=== PATIENT | female | born 1965 | race Caucasian/White ===

== ENCOUNTER 2023-06-11 16:17 | Emergency (ER) | payer OTHER, SELFPAY ==
--- NOTE | ~2023-06-11 | XR_ITS ---
EXAMINATION: XR chest 2V DATE: 06/11/2023 17:52 INDICATION: COPD. Cough and congestion. TECHNIQUE: frontal and lateral views of the chest were obtained. COMPARISON: None FINDINGS: The lungs are clear with no focal airspace opacities, pulmonary edema, pleural effusion or pneumothor ax. The cardiomediastinal silhouette is normal. Mild midthoracic spondylosis. IMPRESSION: 1. No acute cardiopulmonary disease. Reviewed, dictated and finalized at location A. [employer]
[2023-06-11 16:28] VITALS: BP 129/62; PULSE 100; RESP 20; TEMP 36.6; O2SAT 96
--- NOTE | 2023-06-11 17:07 | ED.GENADULT ---
HPI - General Adult General Chief complaint: Upper Respiratory Infection Stated complaint: throat/fever Source: patient Mode of arrival: ambulatory Limitations: no limitations History of Present Illness HPI narrative: Patient presents for evaluation of sick symptoms. Symptom onset 4 days ago. She reports productive cough of rondon green sputum, sinus congestion, green nasal drainage and sore throat. She states she had a fever today at home with T-max 103.8? F. no recent sick contacts to her knowledge. She has an underlying history of COPD and continued to smoke approximately 5 cigarettes per day. She also has a history of diabetes and is currently on glipizide and metformin. She states that her blood sugars were running in the 400-500s yesterday. She took ibuprofen for her symptoms which provided her some relief. Related Data Home Medications Medication Instructions Recorded Confirmed atorvastatin 40 mg tablet mg 06/11/23 atorvastatin 80 mg tablet mg 06/11/23 citalopram 10 mg tablet mg 06/11/23 fluticasone 250 mcg-salmeterol 50 inhalation 06/11/23 mcg/dose blistr powdr for inhalation glipizide 5 mg tablet, extended mg PO 06/11/23 release 24 hr lamotrigine 200 mg tablet mg 06/11/23 metformin 1,000 mg tablet mg 06/11/23 montelukast 10 mg tablet mg 06/11/23 montelukast 10 mg tablet mg 06/11/23 omeprazole 20 mg capsule,delayed mg 06/11/23 release pregabalin 75 mg capsule mg 06/11/23 quetiapine 25 mg tablet mg 06/11/23 quetiapine 400 mg tablet mg 06/11/23 Allergies Allergy/AdvReac Type Severity Reaction Status Date / Time clarithromycin Allergy Unknown Abdominal Verified 06/11/23 16:52 Pain Penicillins Allergy Unknown Hives Verified 06/11/23 16:52 Review of Systems Review of Systems: CONSTITUTIONAL: Reports fever. Denies chills. EYES: Denies visual changes, redness, or discharge. ENT: Reports sinus congestion, green nasal discharge, sore throat. CARDIOVASCULAR: Denies chest pain, palpitations, or edema. RESPIRATORY: Reports productive cough and shortness of breath. GASTROINTESTINAL: Denies abdominal pain, nausea, vomiting, or diarrhea. GENITOURINARY: Denies dysuria or hematuria. SKIN: Denies rash or itching. MUSCULOSKELETAL: Denies back pain, joint pain, or myalgia. NEUROLOGIC: Denies headache, numbness, dizziness, or weakness. PSYCHIATRIC: Denies anxiety or depression. [facility] Past Medical History Medical History (Updated 06/11/23 @ 18:25 by GILLIAN Carreno, ) COPD (chronic obstructive pulmonary disease) Diabetes Surgical History Surgical History No pertinent past surgical history Family History Family History Sibling Hypertension Family history of elevated blood lipids Family history of emphysema Family history of type 2 diabetes mellitus Family history of congestive heart failure Family history of heart disease in male family member before age 55 Father Family history of alcoholism Mother Family history of lung cancer Family history of type 2 diabetes mellitus Social History Social History Smoking packs per day: 0.25 Smoking cigarettes per day: 5.0 Smoking status: Current every day smoker Alcohol intake: never Additional living arrangements comments: Lives with boyfriend Gender identity (if verbalized by the patient): Female Sexual Orientation (if Verbalized by the Patient): Straight or Heterosexual Spiritual care concerns: No Exam Narrative: GENERAL: Smells strongly of cigarette smoke. Well-appearing, well-nourished, and in no acute distress. HEAD: Normocephalic, atraumatic. EYES: PERRLA and EOMI. ENT: Nares clear, no rhinorrhea or epistaxis. Mucous membranes moist. Oropharynx without tonsillar hypertrophy exudate or other lesions. Bilateral TM
[2023-06-11 17:26] LABS: Glucose Point of Care 264 mg/dl (65-105)
== END 2023-06-11 18:34 | disposition home or self-care (01) ==
PROVIDERS: Emergency Provider Nurse Practitioner
DX: J18.9 Pneumonia, unspecified organism (principal); J44.9 Chronic obstructive pulmonary disease, unspecified; Z20.822 Contact with and (suspected) exposure to COVID-19; F17.210 Nicotine dependence, cigarettes, uncomplicated; E11.9 Type 2 diabetes mellitus without complications; Z79.84 Long term (current) use of oral hypoglycemic drugs
CPT/HCPCS: 71046; 82948; 87081; 87426; 87804; 87880; 99203; C9803; G0463

== ENCOUNTER 2025-03-27 13:41 | Outpatient (CLI) | payer MEDICARE, MEDICAID, SELFPAY ==
--- NOTE | ~2025-03-27 | CT_ITS ---
CT Scan of the Chest without Contrast: Clinical Indication: Lung nodule Technique: Contiguous sections were acquired throughout the chest without intravenous contrast. Dose reduction technique was used on this scan by utilizing automated exposure control and iterative reconstruction technique. The dose-length product (DLP) was 124.45 mGy-cm. Findings: There is no evidence of any significant mediastinal, hilar or axillary lymphadenopathy. Coronary artery calcifications are present. No pleural effusions. There is minimal pericardial fluid. The lungs are clear. No pulmonary nodules or infiltrates are noted. Images through the upper abdomen reveal 2.6 cm left adrenal nodule, most likely adenoma. Impression: Clear lungs. 2.6 cm adrenal nodule is most likely adenoma. Follow-up nonemergent MR recommended to confirm. Reviewed, dictated and finalized at location . Impression: Clear lungs. 2.6 cm adrenal nodule is most likely adenoma. Follow-up nonemergent MR recommen ded to confirm.
--- NOTE | ~2025-03-27 | MM_ITS ---
EXAMINATION: MM screening joselin BI w mike HISTORY: Screening mammogram, family history of breast cancer in her sister. TECHNIQUE: Craniocaudal and mediolateral oblique 3-D tomosynthesis images were obtained and synthetic 2-D images were generated. CAD analysis was submitted and interpreted. COMPARISON: No prior mammogram is available for comparison at this institution. BREAST PARENCHYMAL COMPOSITION:Not Dense. There are scattered areas of fibroglandular density. FINDINGS: No suspicious mass, calcification, or architectural distortion are identified in either breast to suggest malignancy. There has been no suspicious interval change. IMPRESSION: No mammographic evidence of malignancy. Recommend routine screening mammography in one year. BI-RADS Category 1: Negative Reviewed, dictated and finalized at location .
--- OUTSIDE RECORDS SUMMARY | 2025-03-27 13:55 | XMS_ITS | Clinical Summary ---
Author Organization [facility] Address [address] [place] [address] Care Team Providers Care Cage Manager Name Role Phone Brisa Maldonado MD Unavailable Chayito Hernadez MD Primary Care Provider [phone] Allergies Active Allergy Reactions Criticality Noted Date Comments Clarithromycin Other (see comment) High 05/10/2018 Stomach cramps Codeine Unknown Penicillin V Hives High 05/10/2018 Medications vitamin D2, ergocalciferol, [address]8543 UNITS capsule Take 1 capsule (50,000 Units total) by mouth once a week. 0 8 Active VENTOLIN HFA 108 (90 Base) MCG/ACT inhaler Use as directed in the mouth or throat daily as needed. 0 8 Active QUEtiapine (SEROQUEL) 25 MG tabletIndicatio ns:25 mg morning and noon Take 1 tablet (25 mg total) by mouth every 6 (six) hours as needed. Indications: 25 mg morning and noon 8pm 1 8 Active nitroglycerin 0.[address] 1 tablet (0.4 mg total) under the tongue every 5 (five) minutes as needed for Chest Pain. 30 tablet 1 8 Active Additional Information Patient not taking.Reported on 12/05/2024 metFORMIN ER 500 MG 24 hr tablet Take 2 tablets (1,000 mg total) by mouth 2 (two) times a day. 0 9 Active atorvastatin (LIPITOR) 80 MG tablet Take 1 tablet (80 mg total) by mouth nightly at bedtime. 0 9 Active omeprazole 20 MG capsule Take 2 capsules (40 mg total) by mouth 2 (two) times a day. Active clobetasol 0.05 % cream 2 (two) times daily as needed. 0 Active ipratropium 0.02 % nebulizer solution INHALE 1 VIAL VIA NEBULIZER Q 6 TO 8 H PRN 9 Active QUEtiapine (SEROQUEL) 200 MG tablet Take 1 tablet (200 mg total) by mouth nightly at bedtime. 0 Active metoprolol succinate ER 50 MG 24 hr tablet Take 1 tablet (50 mg total) by mouth daily. 90 tablet 3 0 Active Additional Information Patient not taking.Reported on 12/05/2024 lamoTRIgine (LAMICTAL) 200 MG tablet Take 1 tablet (200 mg total) by mouth 2 (two) times daily. Active meloxicam (MOBIC) 7.5 MG tablet Take 1 tablet (7.5 mg total) by mouth daily. Active aspirin 81 MG chewable tablet Chew 1 tablet (81 mg total) by mouth daily. Active varenicline (CHANTIX) 1 MG tablet Take 1 tablet (1 mg total) by mouth 2 (two) times daily. Active citalopram (CELEXA) 20 MG tablet Take 1 tablet (20 mg total) by mouth daily. Active montelukast (SINGULAIR) 10 MG tablet Take 1 tablet (10 mg total) by mouth nightly at bedtime. Active tirzepatide (MOUNJARO) 10 MG/0.5ML injectionIndica tions:Diabetes Mellitus Inject 10 mg into the skin every 7 days. Indications: Diabetes Active ziprasidone (GEODON) 40 MG capsule Take 1 capsule (40 mg total) by mouth daily. 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 05/27/2018 Hypertension, essential 05/27/2018 Mild concentric left ventricular hypertrophy (LV H) 05/27/2018 Mixed hypercholesterolemia and hypertriglyceride phani 05/27/2018 NSTEMI (non-ST elevated myoc ardial infarction) ([facility]) 05/10/2018 Pulmonary emphysema ([facility]) 05/10/2018 Immunizations Immunization Administration Dates Next Due Influenza Adult (Generic) 07/21/2019 Family History Medical History Relation Comments Breast Cancer Mother Breast Cancer Sister 1 Breast Cancer Sister 2 Relation Status Comments Mother Sister 1 Sister 2 Alive Social History Tobacco Use Types Packs/Day Years Used Date Smoking Tobacco: Every Day Cigarettes Smokeless Tobacco: Never Tobacco Cessation:Ready to Q uit: Not Asked; Counseling Given: Not Answered Alcohol Use Standard Drinks/Week Comments No 0 (1 standard drink = 0.6 oz pur e alcohol) AUDIT-C Answer Date Recorded Frequency of Alcohol Consumption Never 05/11/2018 Average Number of Drinks Not on file 018 Frequency of Binge Drinking Not on file 12/2017 Comments No Sex and Gender Information Value Date Recorded Sex Assigned at Not on file Legal Sex Female 7:59 PM CDT Gender Identity Not on file Sexual Orientation Not on file Last Filed Vital Signs Vital Sign Reading Time Taken Comments Blood Pressure 120/75 12/05/2024 2:29 PM CDT Pulse 70 12/05/2024 2:29 PM CDT Temperature 36.6 C (97.9 F) 11/30/2022 4:28 PM CDT Respiratory Rate 16 12/05/2024 2:29 PM CDT Oxygen Saturation 98% 12/05/2024 2:29 PM CDT Inhaled Oxygen Concentration - - Weight 81.7 kg (180 lb 3.2 oz) 12/05/2024 2:29 P M CDT Height 162.6 cm (5' 4) 12/05/2024 2:29 PM CDT Body Mass Index 30.93 12/05/2024 2:29 PM CDT Plan of Treatment Upcoming Encounters Date Type Department Care Team (Late st Contact Info) Description 08/14/2025 2:45 PM TAFE TEACHER [facility] [address] [place] [address] Brisa Maldonado MD [address] [place] [address] Health Maintenance Due Date Last Done Comments ASCVD Statin 1965 Colorectal Cancer Screening Colonoscopy (10 Years) 1965 Kidney Health Evaluation 1965 Annual Physical 1968 Diabetes: Retinopathy Eye Exam 1983 Hepatitis C 1983 Zoster Vaccines (1 of 2) 2015 Hemoglobin A1C 11/09/2018 05/11/2018 ASCVD LDL 05/11/2019 05/11/2018 Lipid Panel 05/11/2019 05/11/2018 Mammogram Screening 08/16/2025 08/16/2023, 09/15/2022, 07/30/2021, Additional history exists Cervical Cancer Screening Pap Smear (Age 30 to 64) Every 3 Years 10/17/2026 10/18/2023 Cervical Cancer Screening Pap with HPV Testing (Age 30 to 64) Every 5 Years 10/17/2028 10/18/2023 Cervical Cancer Screening with HPV 10/17/2028 DTaP, Tdap and Td Vaccines (3 - Td or Tdap) 05/11/2033 05/11/2023, 07/27/2022 COVID-19 Vaccine Completed 04/15/2024, , 07/06/2022, Additional history exists Pneumococcal Vaccine: 50+ Years Completed 04/15/2024, 06/14/2021 Meningococcal B Vaccine Aged Out No l onger eligible based on patient's age to complete this topic Meningococcal Vaccine Aged Out No luciano darren eligible based on patient's age to complete this topic RSV Immunizations Under 20 Months Aged Out No longer eligible based on patient's age to complete this topic Medical Devices Implanted Type Area Garbage Collector Device Identifier Shelf Expiration Date Model / Serial / Lot Cv Xience Matilda Jose G [id number] /[id number] Implanted:Qty: 1 on 05/10/2018 by Isaiah Marlow do, MD Stent Coronary [employer] 03/01/2019 [id number] Procedures Procedure Name Priority Date/Time Associated Diagnosis Comments HUMAN PAPILLOMAVIRUS, HIGH-RISK TYPES Routine 10/18/2023 8:00 AM CDT CYTOPATH CERV/VAG THIN LAYER Routine 10/18/2023 12:00 AM CDT MG SCREENING W ILYA VISHNU DIGI Routine 08/16/2023 8:16 AM TAFE TEACHER Visit for screening mammogram LIPID PANEL Routine 05/11/2018 4:05 AM CDT HEMOGLOBIN, GLYCOSYLATED Routine 05/11/2018 4:05 AM CDT from Last 3 Months or Most Recently Relevant to Health Maintenance Results * HUMAN PAPILLOMAVIRUS, HIGH-RISK TYPES (10/18/2023 8:00 AM CDT) SPECIMEN CERVIX 10/20/2023 9:34 AM CDT [facility] HPV DNA HIGH RISK NEGATIVE NEGATIVE 10/21/2023 12:39 AM CDT [facility] Comment:SEE CYTOLOGY REPORT 10/18/2023 8:00 AM CDT us Margarette Wylie MD PATHOLOGY/CYTOLOGY ORDERABLES Final Result [facility] [address] [place] [id number], * Cytopath Cerv/Vag Thin Layer (10/18/2023 12:00 AM CDT) THIN PREP PAP [facility] [address] [place] [address] Department of Pathology Pathology Report CERVICAL/VAGINAL PAP SMEAR REPORT Name: NASIM PADRON Age: 11 1965 (Age: 58) Location: [facility] Sex: F Collected Date: 10/18/2023 [facility] #: [id number] Date Received: 10/19/2023 Date Reported: 10/26/2023 Provider: MARGARETTE WYLIE MD INTERPRETATION CERVICAL/ENDOCERVI MEGAN: SATISFACTORY FOR EVALUATION. ENDOCERVICAL/TRANS FORMATION ZONE COMPONENT PRESENT. NEGATIVE FOR INTRAEPITHELIAL LESION OR MALIGNANCY. NEGATIVE FOR HIGH RISK HPV. The FDA approved Aptima HPV assay is an in vitro nucleic acid amplification test for the qualitative detection of E6/E7 viral messenger RNA (mRNA) from 14 high-risk types of human papillomavirus (HPV) in cervical specimens. The high-risk HPV types detected by the assay include: 16,18,31,33,35,39, 45,51,52,56,58,59, 66, and 68. Electronically Signed Out [facility] HOA Yuan (ASCP) CLINICAL HISTORY Z12.4 CERVICAL CANCER SCREENING SCREENING PAP ThinPrep Pap Test with screening HR HPV testing requested, with reflex HPV 16/18 genotyping on negative cytology, positive HR HPV Date of Last Menstrual Period: UNKNOWN Menstrual Status: Post-Menopausal SPECIMEN SUBMITTED CERVICAL/ENDOCERVI MEGAN Specimen Received:1 Thin Prep Vial, Image Assisted Pap (SMD) Please note: The Pap smear is not a diagnostic test. It is a screening test. Negative results on combined screening (Pap test and HPV-DNA) have a high negative predictive value (99.1-100 percent) for cervical cancer. The pap test is not effective in detecting cervical adenocarcinoma. [facility] 10/18/2023 10/19/2023 10: 21 AM CDT Comment:CERVICAL/ENDOCERVICA L us Margarette Wylie MD PATHOLOGY/CYTOLOGY ORDERABLES Final Result [facility] [address] [place] [address], * MG SCREENING W ILYA GUERRAI (08/16/2023 8:16 AM TAFE TEACHER) Anatomical Region Laterality Modality Breast Bilateral Mammography 08/16/2023 12:5 8 PM TAFE TEACHER Narrative 08/16/2023 1:02 PM TAFE TEACHER EXAMINATION: BILATERAL SCREENING MAMMOGRAPHY Exam Date: 08/16/2023 7:59 AM CLINICAL INDICATION: 58 years of age female routine screening. Patient had a mother and 2 sisters diagnosed with breast cancer. COMPARISON: Screening mammogram(s) from 05/22/2015 and 01/23/2019. TECHNIQUE: Digital CC & MLO views. Tomosynthesis imaging acquisition Study read with the assistance of a computer-aided detection system. TISSUE DENSITY: There are scattered areas of fibroglandular density. FINDINGS: Benign calcifications and left axillary lymph node. No suspicious grouping of microcalcifications, architectural distortion, or new dominant suspicious nodule 3 dimensionally demonstrated in either breast. IMPRESSION: No interval features to suggest malignancy. In the absence of clinical symptoms, return for annual screening mammogram due in 1 year. RECOMMENDATION: Routine Screening, Bilateral in 1 year ASSESSMENT: ACR BI-RADS 2 - BENIGN FINDING(S) Ordered By: CHAYITO HERNADEZ Interpreted By: Don Chen MD, 08/16/2023 12:58 PM us Chayito Hernadez MD MAMMO Final Resu lt * (ABNORMAL) HEMOGLOBIN, GLYCATED (05/11/2018 4:05 AM CDT) HGB A1C 6.5(H) 4.2 - 6.3 % 05/11/2018 4:52 AM CDT [facility] ESTIMATED AVG GLUCOSE 140(H) 74 - 106 MG/DL 05/11/2018 4:52 AM CDT [facility] 05/11/2018 4:05 AM CDT us Conner Pickett MD LABORATORY Final Result [facility] [address] [place] [address], [id number] * (ABNORMAL) LIPID PANEL (05/11/2018 4:05 AM CDT) CHOLESTEROL 186 MG/DL 05/11/2018 4:44 AM CDT [facility] Comment:DESIRABLE: <200 TRIGLYCERIDES 224 MG/DL 05/11/2018 4:44 AM CDT [facility] Comment:200-499 HIGH HDL 27(L) >49 MG/DL 05/11/2018 4:44 AM CDT [facility] LDL (CALCULATED) 114 MG/DL 05/11/20 18 4:44 AM CDT [facility] Comment:100-129 NEAR OR ABOV E OPTIMAL VLDL CALCULATION 45 MG/DL 05/11/20 18 4:44 AM CDT [facility] Comment:REFERENCE RANGE NOT ESTABLISHED CHOL/HDL RATIO 6.9 05/11/2018 4:44 AM CDT [facility] Comment:REFERENCE RANGE NOT ESTABLISHED LDL/HDL 4.2 05/11/2018 4:44 AM CDT [facility] Comment:REFERENCE RANGE NOT ESTABLISHED NON HDL CHOLESTEROL 159 MG/DL 05/11/2018 4:44 AM CDT [facility] Comment:REFERENCE RANGE NOT ESTABLISHED 05/11/2018 4:05 AM CDT Isaiah Charles MD LABORATORY Sonia l Result [facility] [address] [place] [address], [id number] from Last 3 Months or Most Recently Relevant to Health Maintenance Insurance MEDICAID MEDICARE [facility] Advance Directives * Full Code (Latest Code Status on File) Date Activated Date Inactivated Comments 05/10/2018 11:55 PM 05/12/2018 1:25 PM * Full Code Date Activated Date Inactivated Comments 05/10/2018 11:22 PM 05/10/2018 11:54 PM * Full Code Date Activated Date Inactivated Comments 05/10/2018 11:22 PM 05/10/2018 11:22 PM Care Teams Cage Manager Relationship Specialty Start Date End Date Chayito Hernadez MD [address] [place] [phone] PCP - General FAMILY PRACTICE 11/21/24 Brisa Maldonado MD [address] [place] [address] Consulting Physician CARDIOVASCULAR DISEASE 11/21/24
--- OUTSIDE RECORDS SUMMARY | 2025-03-27 13:55 | XMS_ITS | Encounter Summary ---
Author Organization [facility] Address [address] [place] [address] Phone Care Team Providers Care Senior Landscape Architect Name Role Phone Raeann Forrest APRN, CNP Primary Care Provider Mirella Cotter APRN, CNP Unavailable Reason for Visit * Reason Comments Medication Refill Encounter Details Date Type Department Care Team (Late st Contact Info) Description 12/08/2022 Refill [facility] - Pulmonology & Sleep Medicine [facility] [address] [place] [address] Mirella Cotter APRN, CNP [address] [address] Medication Refill Social History Tobacco Use Types Packs/Day Years Used Date Smoking Tobacco: Some Days Cigarettes Smokeless Tobacco: Never Alcohol Use Standard Drinks/Week Comments No 0 (1 standard drink = 0.6 oz pur e alcohol) Sexually Active Control Partners Comments Not Currently Comments No Sex and Gender Information Value Date Recorded Sex Assigned at Not on file Legal Sex Female 7:41 PM CDT Gender Identity Not on file Sexual Orientation Not on file documented as of this encounter Miscellaneous Notes * Telephone Encounter - Raina Ghotra, RN - 12/08/2022 10:46 AM CDT Medication failed the protocol, provider to review and approve the medication order if appropriate. Requested Prescriptions Pending Prescriptions Disp Refills varenicline (CHANTIX) 1 MG Tablet [Pharmacy Med Name: VARENICLINE 1MG] 60 Tablet 1 Sig: TAKE 1 TABLET BY MOUTH 2 TIMES DAILY. Not Delegated - Smoking Deterrents Protocol Failed - 12/08/2022 10:39 AM Failed - This refill cannot be delegated Passed - Visit with relevant provider in past 6 months or upcoming 90 days Recent Visits Date Type Provider Dept 08/04/22 Office Visit Mirella Cotter APRN, CNP [facility] Showing recent visits within past 182 days and meeting all other requirements Future Appointments Date Type Provider Dept 02/02/23 Appointment Mirella Cotter APRN, CNP [facility] Showing future appointments within next 90 days and meeting all other requirements documented in this encounter Plan of Treatment Upcoming Encounters Date Type Department Care Team (Late st Contact Info) Description 05/30/2025 10:00 AM CDT Office Visit [facility] - Pulmonology & Sleep Medicine - [place] [address] [place] [address] Mirella Cotter APRN, CNP [address] [address] documented as of this encounter Visit Diagnoses Diagnosis Personal history of tobacco use Personal history of tobacco use, presenting hazards to health documented in this encounter Care Teams Senior Landscape Architect Relationship Specialty Start Date End Date Raeann Forrest APRN, CNP [address] [place] [address] PCP - General Advanced Practice Nurse 07/28/21 Mirella Cotter APRN, CNP [address] [address] Nurse Practitioner Advanced Practice Nurse 10/28/2112/08/24 documented as of this encounter
--- OUTSIDE RECORDS SUMMARY | 2025-03-27 13:55 | XMS_ITS | Clinical Summary ---
Author Organization [facility] Address [address] [place] [address] Phone Care Team Providers Care Patrol Mother Name Role Phone Lon Raeann Vidal APRN, SOLE TIER Primary Care Provider Allergies Active Allergy Reactions Criticality Noted Date Comments Clarithromycin Other (see Comments) 10/07/2016 Stomach cramping Gabapentin Swelling High 07/29/2021 Hydroxyzine Hives 07/29/2021 Penicillins Hives 10/07/2016 Medications citalopram (CELEXA) 20 MG Tablet Take 20 mg by mouth daily. Active ibuprofen (MOTRIN) 800 MG Tablet Take 800 mg by mouth every 8 hours as needed. Active QUEtiapine Fumarate 400 MG Tablet Take 400 mg by mouth 2 times daily. Active meloxicam (MOBIC) 7.5 MG Tablet Take 7.5 mg by mouth daily. Active atorvastatin (LIPITOR) 40 MG Tablet Take 80 mg by mouth. 9 Active lamoTRIgine (LaMICtal) 100 MG Tablet Take 100 mg by mouth. Active ipratropium (ATROVENT) 0.02 % Solution 2.5 mL. 9 Active omeprazole (PriLOSEC) 20 MG CAPSULE DELAYED RELEASE omeprazole 20 mg capsule,delayed release Take 1 capsule every day by oral route. Active MetFORMIN HCl 1000 MG (MOD) TABLET SR 24 HR Take by mouth 2 times daily. This RX is for Metformin SR. Active Ventolin HFA 108 (90 Base) MCG/ACT Aerosol SolutionIndicat ions:Other emphysema (HCC) take 2 Puffs by inhalation every 4 hours as needed for Cough. 18 g 5 2 Active azelastine (ASTELIN) 0.1 % SolutionIndicat ions:PND (post-nasal drip) 2 Sprays by Nasal route 2 times daily. Use in each nostril as directed 30 mL 3 4 Active Fluticasone-Ume clidin-Vilant (Trelegy Ellipta) 100-62.5-25 MCG/ACT AEROSOL POWDER, BREATH ACTIVATEDIndica tions:Centrilob ular emphysema (HCC) take 1 Puff by inhalation daily. 14 Each 4 Active Additional Information Patient not taking.Reported on 12/03/2024 Tirzepatide (Mounjaro) 10 MG/0.5ML Solution Auto-injector 10 mg by Subcutaneous route once a week. 0.5 mL 5 Active montelukast (SINGULAIR) 10 MG TabletIndicatio ns:Obstructive sleep apnea Take 1 Tablet by mouth every evening. 90 Tablet 3 5 Active Active Problems Problem Noted Date Diagnosed Date PND (post-nasal drip) 09/26/2023 Acute non-recurrent frontal sinusitis 02/02/2023 Personal history of tobacco use 12/28/2021 Other emphysema 12/28/2021 Snoring 07/29/2021 Obstructive sleep apnea 07/29/2021 Morbid obesity 07/29/2021 Resolved Problems Problem Noted Date Diagnosed Date Resolved Date Excessive daytime sleepiness 07/29/2021 12/28/2021 Immunizations Immunization Administration Dates Next Due Influenza, Injectable, Quadrivalent 06/14/2021 Pneumococcal Vaccine Adult - 23 Valent Social History Tobacco Use Types Packs/Day Years Used Date Smoking Tobacco: Former Cigarettes Smokeless Tobacco: Never Alcohol Use Standard [...] Sign Reading Time Taken Comments Blood Pressure 98/60 12/03/2024 8:01 AM CDT Pulse 83 12/03/2024 8:01 AM CDT Temperature 36.7 C (98 F) 12/03/2024 8:01 AM CDT Respiratory Rate 20 12/03/2024 8:01 AM CDT Oxygen Saturation 98% 12/03/2024 8:01 AM CDT Inhaled Oxygen Concentration - - Weight 80.6 kg (177 lb 11.2 oz) 12/03/2024 8:01 AM CDT Height 162.6 cm (5' 4) 12/03/2024 8:01 AM CDT Body Mass Index 30.5 12/03/2024 8:01 AM CDT Plan of Treatment Upcoming Encounters Date Type Department Care Team (Late st Contact Info) Description 05/30/2025 10:00 AM CDT Office Visit [facility] - Pulmonology & Sleep Medicine - [place] [address] [place] [address] Mirella Cotter APRN, SOLE TIER #2 [facility] [address] [place] [address] Health Maintenance Due Date Last Done Comments Hepatitis C Virus (HCV) Screening 1965 Hepatitis B Immunization (1 of 3 - 19+ 3-dose series) 1984 HPV/Cotest 1995 Cologuard 2010 Colonoscopy 2010 Colorectal Cancer Screening 2010 Immunochemical Fecal Occult Blood 2010 Zoster Immunization (1 of 2) 2015 Mammogram 08/16/2024 08/16/2023, 08/07, 09/15/2022, Additional history exists Influenza Immunization (#1) 04/07/202508/2023, 04/15/2024, 06/27/2023, Additional history exists Cervical Cancer Screening (CCS) 10/17/2026 Pap Smear 10/17/2026 10/18/2023 Respiratory Syncytial Virus (RSV) Immunization (Adult) (1 - 1-dose 75+ series) 2040 DTaP/Tdap/Td Immunization Discontinued 05/11/2023, TdaP Immunization Completed 05/11/2023, 07/27/2022 Pneumococcal Immunization (50+ years) Completed 04/15/2024, 06/14/2021 Pneumococcal Immunization Combined Discontinued 04/15/2024, 06/14/2021 SARS-COV-2 Immunization Completed 04/15/20 24, 07/01/2023, 07/06/2022, Additional history exists Human Papillomavirus (HPV) Immunization Aged Out No longer eligible based on patient's age to complete this topic Meningococcal Immunization (ACWY) Aged Out No longer eligible based on patient's age to complete this topic Rotavirus Immunization Aged Out No lo nger eligible based on patient's age to complete this topic Insurance MEDICAID [place] MEDICARE Care Teams Patrol Mother Relationship Specialty Start Date End Date Raeann Forrest APRN, SOLE TIER [address] [place] [address] PCP - General Advanced Practice Nurse 07/28/21
--- OUTSIDE RECORDS SUMMARY | 2025-03-27 13:55 | XMS_ITS | Encounter Summary ---
Author Organization [facility] Address [address] [place] [address] Phone Care Team Providers Care Surveying Teacher Name Role Phone Raeann Forrest APRN, CNP Primary Care Provider Mirella Cotter APRN, CNP Unavailable Reason for Visit * Reason Comments Medication Refill Encounter Details Date Type Department Care Team (Late st Contact Info) Description 10/07/2022 Refill [facility] - Pulmonology & Sleep Medicine [facility] [address] [place] [address] Mirella Cotter APRN, CNP [address] [address] Medication Refill Social History Tobacco Use Types [...] encounter Miscellaneous Notes * Telephone Encounter - Kemi Felix RN - 10/10/2022 8:39 AM WEB SERVICES DEVELOPER Medication failed the protocol, provider to review and approve the medication order if appropriate. Requested Prescriptions Pending Prescriptions Disp Refills APO-Varenicline 1 MG Tablet [Pharmacy Med Name: VARENICLINE 1MG TABLET] 60 Tablet 1 Sig: TAKE 1 TABLET BY MOUTH 2 TIMES DAILY. Not Delegated - Smoking Deterrents Protocol Failed - 10/07/2022 4:09 PM Failed - This refill cannot be delegated Passed - Visit with relevant provider in past 6 months or upcoming 90 days Recent Visits Date Type Provider Dept 08/04/22 Office Visit Mirella Cotter APRN, CNP [facility] Showing recent visits within past 182 days and meeting all other requirements Future Appointments No visits were found meeting these conditions. Showing future appointments within next 90 days and meeting all other requirements SERVICES DEVELOPER documented in this encounter Plan of Treatment Upcoming Encounters Date Type Department Care Team ([facility] st Contact Info) Description 05/30/2025 10:00 AM CDT Office Visit [facility] - Pulmonology & Sleep Medicine [facility] [address] [place] [address] Mirella Cotter APRN, MELVA [address] [address] documented as of this encounter Visit Diagnoses Diagnosis Personal history of tobacco use Personal history of tobacco use, presenting hazards to health documented in this encounter Care Teams Surveying Teacher Relationship Specialty Start Date End Date Raeann Forrest APRN, CNP [address] [place] [address] PCP - General Advanced Practice Nurse 07/28/21 Mirella Cotter APRN, CNP [address] [address] Nurse Practitioner Advanced Practice Nurse 10/28/2112/08/24 documented as of this encounter
--- OUTSIDE RECORDS SUMMARY | 2025-03-27 13:55 | XMS_ITS | Encounter Summary ---
Author Organization [facility] Address [address] [place] [address] Phone Care Team Providers Care Echocardiography Technologist Name Role Phone Raeann Forrest APRN, CNP Primary Care Provider Mirella Cotter APRN, CNP Unavailable Reason for Visit * Reason Comments Medication Refill Encounter Details Date Type Department Care Team (Late st Contact Info) Description 11/08/2022 Refill [facility] - Pulmonology & Sleep Medicine [facility] [address] [place] [address] Mirella Cotter APRN, CNP [address] [address] Medication Refill Social History Tobacco Use Types [...] Telephone Encounter - Raina Ghotra, RN - 11/08/2022 12:50 PM CDT Medication failed the protocol, provider to review and approve the medication order if appropriate. Requested Prescriptions Pending Prescriptions Disp Refills varenicline (CHANTIX) 1 MG Tablet [Pharmacy Med Name: VARENICLINE 1MG] 60 Tablet 1 Sig: TAKE 1 TABLET BY MOUTH 2 TIMES DAILY. Not Delegated - Smoking Deterrents Protocol Failed - 11/08/2022 12:47 PM Failed - This refill cannot be [...] Description 05/30/2025 10:00 AM CDT Office Visit [facility] - Pulmonology & Sleep Medicine - [place] [address] [place] [address] Mirella Cotter APRN, CNP [address] [address] documented as of this encounter Visit Diagnoses Diagnosis Personal history of tobacco use Personal history of tobacco use, presenting hazards to health documented in this encounter Care Teams Echocardiography Technologist Relationship Specialty Start Date End Date Raeann Forrest APRN, CNP [address] [place] [address] PCP - General Advanced Practice Nurse 07/28/21 Mirella Cotter APRN, CNP [address] [address] Nurse Practitioner Advanced Practice Nurse 10/28/2112/08/24 documented as of this encounter
--- OUTSIDE RECORDS SUMMARY | 2025-03-27 13:55 | XMS_ITS | Clinical Summary ---
Author Organization [facility] Address [address] [place] [address] Care Team Providers Care Virtualization Engineer Name Role Phone Chayito Echavarria MD Primary Care Provider Allergies Active Allergy Reactions Criticality Noted Date Comments Clarithromycin Codeine Gabapentin Swelling High 07/29/2021 Hydroxyzine Hives Medium 07/29/2021 Penicillins Medications meloxicam (MOBIC) 7.5 mg tablet Take 1 tablet (7.5 mg total) by mouth 2 (two) times a day with meals 60 tablet 5 Active Additional Information Patient not taking.Reported on 10/28/2024 albuterol HFA (Ventolin HFA) 90 mcg/actuation inhaler Inhale 2 puffs every 4 (four) hours as needed 2 Active aspirin 81 mg chewable tablet Take 1 tablet (81 mg total) by mouth daily Active citalopram (CeleXA) 20 mg tablet Take 1 tablet (20 mg total) by mouth daily Active LANTUS 100 unit/mL (3 mL) pen for injection Inject 18 Units under the skin nightly 5 Active ipratropium (ATROVENT) 0.02 % nebulizer solution Take 2.5 mL (0.5 mg total) by nebulization 2 (two) times a day 9 Active lamoTRIgine (LaMICtal) 200 mg tablet Take 1 tablet (200 mg total) by mouth 2 (two) times a day 9 Active metFORMIN (GLUCOPHAGE) 1,000 mg tablet Take 1 tablet (1,000 mg total) by mouth 2 (two) times a day with meals Active montelukast (SINGULAIR) 10 mg tablet Take 1 tablet (10 mg total) by mouth nightly 5 Active omeprazole (PriLOSEC) 20 mg capsule Take 1 capsule (20 mg total) by mouth 2 (two) times a day Active Mounjaro 10 mg/0.5 mL pen injector injection Inject 0.5 mL (10 mg total) under the skin once a week Took Monday night 5 Active varenicline tartrate (CHANTIX) 1 mg tabletIndicatio ns:Smoking Cessation Take 1 tablet (1 mg total) by mouth 2 (two) times a day Take with full glass of water. Active QUEtiapine (SEROquel) 200 mg tablet Take 1 tablet (200 mg total) by mouth nightly 30 tablet 5 Active QUEtiapine (SEROquel) 25 mg tablet Take 1 tablet (25 mg total) by mouth every 6 (six) hours as needed (Anxiety) 120 tablet 5 Active ziprasidone (GEODON) 40 mg capsule Take 1 capsule (40 mg total) by mouth 2 (two) times a day with meals 60 capsule 5 Active Active Problems Problem Noted Date Diagnosed Date Dizziness 10/29/2024 Palpitations 10/28/2024 Encounters Date Type Department Care Team Description 03/07/2025 12:41 PM CDT - 03/08/2025 1:05 AM CDT Emergency [facility] Emergency Department [address] [id number] Danis Christensen MD [place], MD Maribell Boone [place] Maierhofer, MD Episodic cluster headache, not intractable (Primary Dx); Weakness Discharge Disposition: Discharge to home or self care from Last 3 Months Immunizations Immunization Administration Dates Next Due Influenza, Quadrivalent, Spl it, Intramuscular 06/14/2021,05/16/2019,06/25/2018 Influenza, Quadrivalent, Spl it, Preservative Free, Intramuscular 05/20/2022 Influenza, Trivalent, Cell C ulture-based MDCK, Preservative Free, Antibiotic Free, Intramuscular 06/27/2023 Influenza, Trivalent, IM (MDV) 05/21/2020 Influenza, Unspecified 05/07/2024,07/21/2019 Moderna Sars-cov-2 Bivalent Vaccine 50 Mcg/0.5 mL (12+ YRS)-Blue/Block 07/06/2022 Pneumococcal Polysaccharide PPV23 06/14/2021 Sars-cov-2 Covid-19 Mrna, Bi valent, Original/omicron Ba.1 07/01/2023 Tdap 05/11/2023,07/27/2022 Family History Medical History Relation Name Comments Breast cancer Sister 1 Breast cancer Sister 2 Breast cancer Sister 3 Relation Name Status Comments Sister 1 Sister 2 Sister 3 Social History Tobacco Use Types Packs/Day Years Used Date Smoking Tobacco: Never Tobacco Cessation:Counseling Given: Not Answered [facility] Utilities Answer Date Recorded In the past 12 months has th e electric, gas, oil, or water company threatened to shut off services in your home? No 10/29/2024 Social Connection and Isolation Panel Answer Date Recorded In a typical week, how many times do you talk on the phone with family, friends, or neighbors? Three times a week 10/30/19 How often do you get togethe r with friends or relatives? Three times a week 10/29/2024 How often do you attend chur ch or uatsdin services? 1 to 4 times per year 10/29/2024 Do you belong to any clubs o r organizations such as lutheran groups, unions, fraternal or athletic groups, or school groups? No 10/29/2024 How often do you attend meet ings of the clubs or organizations you belong to? Never 10/29/2024 Are you , , di vorced, , never , or living with a partner? Living with partner 10/29/2024 Overall Financial Resource Strain (CARDIA) Answe r Date Recorded How hard is it for you to pa y for the very basics like food, housing, medical care, and heating? Somewhat hard 10/29/2024 Hunger Vital Sign Answer Date Recorded Within the past 12 months, y ou worried that your food would run out before you got the money to buy more. Never true 10/30/19 Within the past 12 months, t he food you bought just didn't last and you didn't have money to get more. Never true 10/29/2024 PRAPARE - Transportation Answer Date Re corded In the past 12 months, has l ack of transportation kept you from medical appointments or from getting medications? No 10/06 In the past 12 months, has l ack of transportation kept you from meetings, work, or from getting things needed for daily living? No 10/29/2024 Housing Stability Vital Sign Answer Gopi e Recorded In the last 12 months, was t here a time when you were not able to pay the mortgage or rent on time? No 10/29/2024 In the past 12 months, how m any times have you moved where you were living? 0 10/29/2024 At any time in the past 12 m [facility], were you homeless or living in a [facility] (including now)? No 10/29/2024 Personal Safety Answer Date Recorded Have you ever been in or are you currently in a harmful physical or emotional relationship or is someone making you feel afraid or unsafe? Denies 03/07/2025 Comments No Sex and Gender Information Value Date Recorded Sex Assigned at Not on file Legal Sex Female 3:51 AM APPLICATIONS ARCHITECT Gender Identity Not on file Sexual Orientation Not on file Obstetrics History Para Term AB IAB SAB Ectopic Multiple Livin g Live Births 4 2 2 Date Outcome GA Total Labor Labor/2nd/3rd Weight Sex Type Anes PTL Maria Ines A1 A5 Name Clin Term Term Last Filed Vital Signs Vital Sign Reading Time Taken Comments Blood Pressure 162/82 03/07/2025 9:30 PM CDT Pulse 73 03/08/2025 12:55 AM CDT Temperature 36.8 C (98.3 F) 10/29/2024 3:08 PM CDT Respiratory Rate 16 03/07/2025 5:30 PM CDT Oxygen Saturation 97% 03/08/2025 12:55 AM CDT Inhaled Oxygen Concentration - - Weight 78.5 kg (173 lb) 03/07/2025 12:56 PM CDT Height 162.6 cm (5' 4) 10/28/2024 7:45 PM CDT Body Mass Index 29.7 10/28/2024 7:45 PM CDT Plan of Treatment Health Maintenance Due Date Last Done Comments Colon Cancer Screening-Colonoscopy 1965 Depression Screening 1965 Hepatitis C Screening 1965 Hepatitis B Screening 1983 Regular Well Visit/Exam 18-64 1983 Zoster Vaccine (1 of 2) 2015 Pneumococcal vaccine <65 (2 of 2 - PCV) 06/14/2022 06/14/2021 Covid-19 Vaccine (7 2023-2 5 season) 2024 07/01/2023, 07/06/2022, 12/17/2021, Additional history exists Breast Cancer Screening-Mammogram 08/16/2024 08/16/2023, 08/16/2023, 09/15/2022, Additional history exists Cervical Cancer Screening 10/17/2024 10/18/2023 Influenza Vaccine (#1) 2025 , 06/27/2023, 05/20/2022, Additional history exists DTaP/Tdap/Td Vaccine (3 - Td or Tdap) 05/11/2033 05/11/2023, 07/27/2022 Procedures Procedure Name Priority Date/Time Associated Diagnosis Comments BRENT QUALITATIVE WITH REFLEX TO BRENT QUANTITATIVE STAT 03/07/2025 7:17 PM CDT TROPONIN T HIGH-SENSITIVITY 6-HOUR Timed 03/07/2025 7:17 PM CDT CTA HEAD NECK W WO CONTRAST ED 03/07/2025 7:15 PM CDT TROPONIN T HIGH-SENSITIVITY 4-HR Timed 03/07/2025 5:35 PM CDT TROPONIN T HIGH-SENSITIVITY 2-HOUR Timed 03/07/2025 3:[address] HEAD WO CONTRAST ED 03/07/2025 2 :30 PM CDT URINALYSIS, MICROSCOPIC ONLY STAT 03/07/2025 1:29 PM CDT URINALYSIS AND REFLEX TO MICROSCOPIC AND CULTURE STAT 03/07/2025 1:29 PM CDT ERYTHROCYTE SEDIMENTATION RATE STAT 03/07/2025 1:02 PM CDT EGFR STAT 03/07/2025 1:02 PM CDT DIFFERENTIAL AUTO STAT 03/07/2025 1:0 2 PM CDT TROPONIN T HIGH-SENSITIVITY SERIES (BASELINE, 2HR, 4HR, 6HR) STAT 03/07/2025 1:02 PM CDT MAGNESIUM STAT 03/07/2025 1:02 PM CDT COMPREHENSIVE METABOLIC PANEL STAT 03/07/2025 1:02 PM CDT CBC WITH AUTO DIFFERENTIAL STAT 03/07/2025 1:02 PM CDT ECG 12-LEAD STAT 03/07/2025 12:53 PM CDT SCREENING MAMMOGRAM BILATERAL W BHARATH Schedule Routine, Read Routine (OP Routine) 09/15/2022 4:21 PM APPLICATIONS ARCHITECT Encounter for screening mammogram for malignant neoplasm of breast from Last 3 Months or Most Recently Relevant to Health Maintenance Results * Troponin T high-sensitivity 6-hour (03/07/2025 7:17 PM CDT) Trop T hs <6 <=14 ng/L [facility] ([facility]) Comment: Interpretive Data For further hscTnT resources including the diagnostic algorithm and an aid in interpretation, copy and paste this link: https://nrl.testcatalog.org/show/hsTrop Current Interpretive Data last revised 2020. Trop T hs delta 0 ng/L [facility] ([facility]) Trop T hs interp Insignificant [facility] ([facility]) Blood 03/07/2025 7:17 PM CDT 03/07/2025 7:19 PM CDT us Danis Christensen MD LAB BLOOD ORDERABLE S Final Result Performing Organization Address [facility] Co de Phone Number [facility] ([facility]) [address] [facility] Department [place] [address] * BRENT ab ql w/rflx to BRENT qn (03/07/2025 7:17 PM CDT) BRENT Negative Comment: Interpretive Data Normal range for BRENT Qualitative Antibody = Negative. 1. BRENT is performed using indirect immunofluorescence against HEp-2 cells 2. BRENT titers are performed on all positive qualitative results. 3. A significantly positive BRENT result is defined as a positive nuclear fluorescence at a titer of 1:80 or greater. 4. 15% of normal people above age 65 have significantly positive BRENT results. 5% or less of normal people age 65 or under have significantly positive BRENT results. Current interpretive data was last revised on 2020. Testing performed by: [facility], [address] [place]., [address] Blood 03/07/2025 7:17 PM CDT 03/08/2025 2:44 PM CDT Brian Hrerera MD LAB BLOOD ORDERABLES Final Result Performing Organization Address [facility] Co de Phone Number [facility] ([facility]) 1 [facility] Department [place] [address] * CTA Head Neck W WO Contrast (03/07/2025 7:15 PM CDT) Anatomical Region Laterality Modality Head and Neck N/A Computed Tomogra phy 03/07/2025 9:29 PM CDT Narrative 03/07/2025 9:39 PM CDT EXAM DESCRIPTION: CTA HEAD NECK W WO CONTRAST REASON FOR STUDY: Ophthalmoplegia, Transient ischemic attack (TIA) Pt states she wasn't feeling well while driving and they stopped at the fire house. Pt states she has been feeling more and more unwell the last several days, states at least 4 days of this. Pt has clear speech, no facial droop seen, pt states severe headache. Pt states chest heaviness and dizziness intermittently. Pt has cardiac hx. VSS. TECHNIQUE: Axial images were first obtained through the brain without contrast. Axial dynamic scanning technique with dynamic contrast enhancement through the intracranial and extracranial carotid and vertebral arteries. Multiplanar reconstruction. All stenosis measurements are based on NASCET criteria. 3D MIP images rendered on scanning unit and reviewed at time of interpretation. Automated exposure control was used as a dose optimization technique for this examination. CONTRAST TYPE/DOSE: 100mL of IOVERSOL 350 MG IODINE/ML INTRAVENOUS SYRINGE injected COMPARISON: Noncontrast head CT 03/07/2025 and 10/28/2024 FINDINGS: INTRACRANIAL VESSELS [place]: The anterior, middle, posterior cerebral arteries are all patent. The P1 segment of posterior cerebral artery is hypoplastic, a normal variant. No evidence of aneurysm or focal stenosis. POSTERIOR CIRCULATION: The distal vertebral arteries are patent as is the basilar artery. No aneurysm. BRAIN: No gross enhancing lesions as visualized. The left transverse sinus is hypoplastic, a normal variant. CAROTID CTA RIGHT CAROTIDS: Scattered atherosclerotic calcifications. No hemodynamically significant arterial stenosis arterial occlusion, dissection, or aneurysm. LEFT CAROTIDS: Scattered atherosclerotic calcifications. Noncalcified plaques of the left common carotid artery. No hemodynamically significant arterial stenosis arterial occlusion, dissection, or aneurysm. LEFT VERTEBRAL: No hemodynamically significant arterial stenosis arterial occlusion, dissection, or aneurysm. RIGHT VERTEBRAL: No hemodynamically significant arterial stenosis arterial occlusion, dissection, or aneurysm. AORTIC ARCH: Normal three-vessel origin. Bilateral subclavian arteries are patent. No dissection. NECK SOFT TISSUE: No mass, adenopathy. No thyroid nodule greater than 1 cm. INCLUDED LUNGS: Mild subsegmental atelectasis. Mosaic pattern attenuation in both lungs can be seen with small airways disease and less likely small vessels disease. OTHER: No acute fractures or aggressive bone lesions IMPRESSION: 1. No hemodynamically significant arterial stenosis arterial occlusion, dissection, or aneurysm of cervical or intracranial arterial system.. THIS IS AN ELECTRONICALLY VERIFIED FINAL REPORT 03/07/2025 9:39 PM - Electronically signed by Bayron Crowley M.D. AT: AT Report ID: [id number] Reading Location: [id number] Procedure Note Bayron Crowley MD - 03/07/2025 EXAM DESCRIPTION: CTA HEAD NECK W WO CONTRAST REASON FOR STUDY: Ophthalmoplegia, Transient ischemic attack (TIA) Pt states she wasn't feeling well while [facility] Pt states she has been feeling more and more unwell the lastseveral days, states at least 4 days of this. Pt has clear speech, no facial droop seen, pt states severe headache. Pt states chest heaviness and dizziness intermittently. Pt has cardiac hx. VSS. TECHNIQUE: Axial images were first obtained through the brain without contrast. Axial dynamic scanning technique with dynamic contrast enhancement throughthe intracranial and extracranial carotid and vertebral arteries. Multiplanar reconstruction. All stenosis measurements are based on NASCET criteria. 3D MIP images rendered on scanning unit and reviewed at time of interpretation. Automated exposure control was used as a dose optimization technique forthis examination. CONTRAST TYPE/DOSE: 100mL of IOVERSOL 350 MG IODINE/ML INTRAVENOUSSYRINGE injected COMPARISON: Noncontrast head CT 03/07/2025 and 10/28/2024 FINDINGS: INTRACRANIAL VESSELS [place]: The anterior, middle, posterior cerebral arteries areall patent. The P1 segment of posterior cerebral artery is hypoplastic, anormal variant. No evidence of aneurysm or focal stenosis. POSTERIOR CIRCULATION: The distal vertebral arteries are patent as isthe basilar artery. No aneurysm. BRAIN: No gross enhancing lesions as visualized. The left transversesinus is hypoplastic, a normal variant. CAROTID CTA RIGHT CAROTIDS: Scattered atherosclerotic calcifications. Nohemodynamically significant arterial stenosis arterial occlusion, dissection, or aneurysm. LEFT CAROTIDS: Scattered atherosclerotic calcifications. Noncalcifiedplaques of the left common carotid artery. No hemodynamically significantarterial stenosis arterial occlusion, dissection, or aneurysm. LEFT VERTEBRAL: No hemodynamically significant arterial stenosisarterial occlusion, dissection, or aneurysm. RIGHT VERTEBRAL: No hemodynamically significant arterial stenosisarterial occlusion, dissection, or aneurysm. AORTIC ARCH: Normal three-vessel origin. Bilateral subclavian arteriesare patent. No dissection. NECK SOFT TISSUE: No mass, adenopathy. No thyroid nodule greater than 1cm. INCLUDED LUNGS: Mild subsegmental atelectasis. Mosaic patternattenuation in both lungs can be seen with small airways disease and less likely small vessels disease. OTHER: No acute fractures or aggressive bone lesions IMPRESSION: 1. No hemodynamically significant arterial stenosis arterial occlusion, dissection, or aneurysm of cervical or intracranial arterial system.. THIS IS AN ELECTRONICALLY VERIFIED FINAL REPORT 03/07/2025 9:39 PM - Electronically signed by Bayron Crowley M.D. AT: AT Report ID: [id number] Reading Location: [id number] us Brian Herrera MD IMG CT PROCEDURES Final Res ult * Troponin T high-sensitivity 4-hour (03/07/2025 5:35 PM CDT) Trop T hs <6 <=14 ng/L [facility] ([facility]) Comment: Interpretive Data For further hscTnT resources including the diagnostic algorithm and an aid in interpretation, copy and paste this link: https://[employer].[email or web address]/show/hsTrop Current Interpretive Data last revised 2020. Trop T hs delta 0 ng/L [facility] ([facility]) Trop T hs interp Insignificant [facility] ([facility]) Blood 03/07/2025 5:35 PM CDT 03/07/2025 5:38 PM CDT us Danis Christensen MD LAB BLOOD ORDERABLE S Final Result [facility] ([place]) 1 [facility] Department [place] [address] * Troponin T high-sensitivity 2-hour (03/07/2025 3:07 PM CDT) Trop T hs <6 <=14 ng/L [facility] ([facility]) Comment: Interpretive Data For further hscTnT resources including the diagnostic algorithm and an aid in interpretation, copy and paste this link: https://nrl.Howcast.org/show/hsTrop Current Interpretive Data last revised 2020. Trop T hs delta 0 ng/L [facility] ([facility]) Trop T hs interp Insignificant [facility] ([facility]) Blood 03/07/2025 3:07 PM CDT 03/07/2025 3:09 PM CDT us Danis Christensen MD LAB BLOOD ORDERABLE S Final Result [facility] (NASIR) 1 [facility] Department [place] [address] * CT Head WO Contrast (03/07/2025 2:30 PM CDT) Anatomical Region Laterality Modality Head and Neck N/A Computed Tomogra phy 03/07/2025 3:54 PM CDT Narrative 03/07/2025 3:58 PM CDT EXAM DESCRIPTION: CT HEAD WO CONTRAST REASON FOR STUDY: Mental status change, unknown cause Headache for 6 days TECHNIQUE: Axial images acquired through the brain without intravenous contrast. Images stored on PACS. Automated exposure control was used as a dose optimization technique for this examination. COMPARISON: CT head 10/28/2024 FINDINGS: BRAIN: No hemorrhage, edema or mass effect. No recent infarct. Normal white matter. EXTRA-AXIAL SPACES: No fluid collections. No masses. CALVARIUM: No fracture. SINUSES/MASTOIDS: No fluid or mucosal thickening. 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 ORBITS: No significant abnormality. OTHER: No other significant abnormality. IMPRESSION: No acute intracranial findings. THIS IS AN ELECTRONICALLY VERIFIED FINAL REPORT 03/07/2025 3:58 PM - Electronically signed by Johnny Wakefield M.D. AM: AM Report ID: [id number] Reading Location: [id number] Procedure Note Johnny Wakefield MD - 03/07/2025 EXAM DESCRIPTION: CT HEAD WO CONTRAST REASON FOR STUDY: Mental status change, unknown cause Headache for 6 days TECHNIQUE: Axial images acquired through the brain without intravenous contrast. Images stored on PACS. Automated exposure control was used asa dose optimization technique for this examination. COMPARISON: CT head 10/28/2024 FINDINGS: BRAIN: No hemorrhage, edema or mass effect. No recent infarct. Normal white matter. EXTRA-AXIAL SPACES: No fluid collections. No masses. CALVARIUM: No fracture. SINUSES/MASTOIDS: No fluid or mucosal thickening. 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 ORBITS: No significant abnormality. OTHER: No other significant abnormality. IMPRESSION: No acute intracranial findings. THIS IS AN ELECTRONICALLY VERIFIED FINAL REPORT 03/07/2025 3:58 PM - Electronically signed by Johnny Wakefield M.D. AM: AM Report ID: [id number] Reading Location: [id number] Danis Christensen MD IMG CT PROCEDURES F inal Result * (ABNORMAL) Urinalysis reflex to microscopic and culture Urine (03/07/2025 1:29 PM CDT) Color, ur Yellow Yellow Clarity, ur Clear Clear [facility] ([facility]) Specific gravity, ur 1.020 1.003 - 1.030 [facility] ([facility]) pH, urine 5.5 [facility] ([facility]) Comment: Interpretive Data U rine pH is affected by diet, medications, systemic acid-base disturbances, and renal tubular function. pH may affect urinary stone formation. For example, urine pH below 6.0 may help reduce the tendency for calcium phosphate stones and pH greater than 6.0 may reduce the tendency for uric acid stone formation. Source: [employer] Current Interpretive Data was last revised on 2017 Protein, ur ql Negative Negative [facility] ([facility]) Glucose, ur ql Negative Negative [facility] ([facility]) Ketones, ur Negative Negative [facility] ([facility]) Bilirubin, ur Negative Negative [facility] ([facility]) Blood, ur Negative Negative [facility] ([facility]) Urobilinogen, ur <2.0 <2.0 mg/dL [facility] ([facility]) Nitrite, ur Negative Negative [facility] ([facility]) Leukocyte esterase, ur 1+(A) Negative [facility] (NASIR) UA reflex comment Reflex to microscopic UA will be performed. [facility] (NASIR) Urine 03/07/2025 1:29 PM CDT 03/07/2025 1:32 PM CDT Danis Christensen MD LAB MICROBIOLOGY - GENERAL ORDERABLES Final Result Performing Organization Address [facility] Co de Phone Number [facility] (NASIR) 1 [facility] [place] [address] * (ABNORMAL) Urinalysis, microscopic only (03/07/2025 1:29 PM CDT) WBC, ur 6-10(A) 0 - 5 /HPF RBC, ur 0-2 0 - 2 /HPF [facility] (NASIR) Epithelial cells, squamous, ur 1-5 0 - 5 /HPF [facility] (NASIR) Bacteria, ur Trace(A) [facility] (NASIR) Mucous, ur Present(A) [facility] ([place]) Culture Reflex Comment Reflex conditions for urine culture (WBC >10) not met. [facility] (NASIR) Urine 03/07/2025 1:29 PM CDT 03/07/2025 1:32 PM CDT Danis Christensen MD LAB URINE ORDERABLE S Final Result Performing Organization Address [facility] Co de Phone Number [facility] (NASIR) 1 [facility] [place] [address] * Troponin T high-sensitivity series (baseline, 2hr, 4hr, 6hr) (03/07/2025 1:02 PM CDT) Trop T hs <6 <=14 ng/L [facility] (NASIR) Comment: Interpretive Data For further hscTnT resources including the diagnostic algorithm and an aid in interpretation, copy and paste this link: https://nrl.testcatalog.org/show/hsTrop Current Interpretive Data last revised 2020. Blood 03/07/2025 1:02 PM CDT 03/07/2025 1:29 PM CDT us Danis Christensen MD LAB BLOOD ORDERABLE S Final Result [facility] ([place]) 1 [facility] [place] [address] * eGFR (03/07/2025 1:02 PM CDT) eGFR >90 >=60 mL/min/1. 73 m2 Comment: Interpretive Data Reference Interval Normal >/= 90 mL/min/1.73m2 Mildly decreased* 60 - 89 mL/min/1.73m2 Mildly to moderately decreased 45 - 59 mL/min/1.73m2 Moderately to severely decreased 30 - 44 mL/min/1.73m2 Severely decreased 15 - 29 mL/min/1.73m2 Kidney Failure < 15 mL/min/1.73m2 *Relative to young adult level Estimated glomerular filtration rate is determined by the 2020 CKD-EPI equation recommended by the National Kidney Foundation (A Unifying Approach to GFR Estimation: Recommendations of the NKF-ASK Task Force on Reassessing the Inclusion of Race in Diagnosing Kidney Disease, JASN 2020). The CKD-EPI equation should not be used for patients with unstable renal function and has not been validated in children and those over 70. Current interpretive data was last reviewed 2021. Blood 03/07/2025 1:02 PM CDT 03/07/2025 1:07 PM CDT us Danis Christensen MD LAB BLOOD ORDERABLE S Final Result [facility] ([place]) 1 [facility] [place] [address] * Differential, auto (03/07/2025 1:02 PM CDT) Neutrophil abs 3.27 1.50 - 6.50 K/cumm Imm gran abs 0.01 0.00 - 0.10 K/cumm [facility] ([facility]) Lymphocyte abs 3.15 0.80 - 3.30 K/cumm [facility] ([facility]) Monocyte abs 0.41 0.20 - 0.80 K/cumm [facility] [facility] ([facility]) Eosinophil abs 0.19 0.00 - 0.50 K/cumm [facility] ([facility]) Basophil abs 0.08 0.00 - 0.10 K/cumm [facility] ([facility]) Neutrophil pct 46.0 % [facility] ([facility]) Comment: Interpretive Data Percent cell count reference ranges are not reported, since discordance with absolute values may lead to misinterpretation of CBC data. Current Interpretive Data was last revised on 2017. Imm gran pct 0.1 % [facility] ([facility]) Comment: Interpretive Data Percent cell count reference ranges are not reported, since discordance with absolute values may lead to misinterpretation of CBC data. Current Interpretive Data was last revised on 2017. Lymphocyte pct 44.3 % [facility] ([facility]) Comment: Interpretive Data Percent cell count reference ranges are not reported, since discordance with absolute values may lead to misinterpretation of CBC data. Current Interpretive Data was last revised on 2017. Monocyte pct 5.8 % [facility] ([facility]) Comment: Interpretive Data Percent cell count reference ranges are not reported, since discordance with absolute values may lead to misinterpretation of CBC data. Current Interpretive Data was last revised on 2017. Eosinophil pct 2.7 % [facility] ([facility]) Comment: Interpretive Data Percent cell count reference ranges are not reported, since discordance with absolute values may lead to misinterpretation of CBC data. Current Interpretive Data was last revised on 2017. Basophil pct 1.1 % [facility] ([facility]) Comment: Interpretive Data Percent cell count reference ranges are not reported, since discordance with absolute values may lead to misinterpretation of CBC data. Current Interpretive Data was last revised on 2017. Blood 03/07/2025 1:02 PM CDT 03/07/2025 1:07 PM CDT us Danis Christensen MD LAB BLOOD ORDERABLE S Final Result [facility] ([facility]) 1 [facility] [place] [address] * CBC with auto differential (03/07/2025 1:02 PM CDT) WBC 7.11 3.80 - 9.90 K/cumm Hgb 12.7 11.9 - 15.5 g/dL [facility] ([facility]) Hct 38.4 35.6 - 45.5 % [facility] ([facility]) Plt 224 150 - 400 K/cumm [facility] ([facility]) MPV 10.2 9.1 - 12.3 fL [facility] ([facility]) RBC 4.43 3.90 - 5.20 M/cumm [facility] ([facility]) MCV 86.7 81.3 - 96.4 fL [facility] ([facility]) MCH 28.7 27.1 - 33.3 pg [facility] ([facility]) MCHC 33.1 32.3 - 35.7 g/dL [facility] ([facility]) RDW CV 13.7 11.1 - 14.9 % [facility] ([facility]) RDW SD 43.7 35.7 - 48.1 fL [facility] ([facility]) NRBC abs 0.00 0.00 - 0.01 K/cumm [facility] ([facility]) Blood 03/07/2025 1:02 PM CDT 03/07/2025 1:07 PM CDT us Danis Christensen MD LAB BLOOD ORDERABLE S Final Result [facility] (NASIR) 1 [facility] [place] [address] * Erythrocyte sedimentation rate (03/07/2025 1:02 PM CDT) Erythrocyte sedimentation rate 15 1 - 30 mm/hr Blood 03/07/2025 1:02 PM CDT 03/07/2025 6:12 PM CDT us Brian Herrera MD LAB BLOOD ORDERABLES Final Result [facility] (NAS[facility]) 1 [facility] [place] [address] * Magnesium (03/07/2025 1:02 PM CDT) Magnesium 1.4 1.4 - 2.5 mg/dL [facility] ([facility]) Blood 03/07/2025 1:02 PM CDT 03/07/2025 1:07 PM CDT us Danis Christensen MD LAB BLOOD ORDERABLE S Final Result Performing Organization Address City/[facility]/ZIP Co de Phone Number [facility] (NASIR) 1 [facility] [place] [address] * (ABNORMAL) Comprehensive metabolic panel (03/07/2025 1:02 PM CDT) Sodium 142 135 - 145 mmol/L [facility] Potassium, pl 3.8 3.3 - 4.9 mmol/L [facility] ([facility]) Chloride 106 97 - 110 mmol/L [facility] ([facility]) CO2 22 22 - 32 mmol/L [facility] ([facility]) Anion gap 14 2 - 15 mmol/L [facility] BUN 12 6 - 25 mg/dL [facility] Creatinine 0.68 0.60 - 1.10 mg/dL [facility] ([facility]) Glucose 96 70 - 199 mg/dL [facility] ([facility]) Comment: Interpretive Data Fasting glucose >/= 126 mg/dl is diagnostic for diabetes. Fasting is defined as no caloric intake for at least 8 hours. Fasting glucose between 100 mg/dl to 125 mg/dl is diagnostic of prediabetes. In a patient with classic symptoms of hyperglycemia or hyperglycemic crisis, a random glucose >/= 200 mg/dl is diagnostic for diabetes. In the absence of unequivocal hyperglycemia, results should be confirmed by repeat testing. The classification and Diagnosis of Diabetes Diabetes Care 2021; 46: S19-S40. Current interpretive data was last revised 2022. Calcium 10.7(H) 8.5 - 10.3 mg/dL [facility] ([facility]) Bilirubin, total 0.5 0.1 - 1.2 mg/dL [facility] ([facility]) Protein, pl 6.8 6.5 - 8.5 g/dL [facility] ([facility]) Albumin 3.8 3.5 - 5.0 g/dL [facility] ([facility]) Alk phos 94 40 - 130 Units/L [facility] ([facility]) ALT 15 7 - 45 Units/L [facility] ([facility]) AST 17 10 - 45 Units/L [facility] ([facility]) Blood 03/07/2025 1:02 PM CDT 03/07/2025 1:07 PM CDT us Danis Christensen MD LAB BLOOD ORDERABLE S Final Result Performing Organization Address [facility]/ZIP Co de Phone Number [facility] (NASIR) 1 [facility] [place] [address] * ECG 12 lead (03/07/2025 12:53 PM CDT) 03/07/2025 12:5 3 PM CDT Narrative [facility] - 03/07/2025 3:33 PM CDT Vent Rate: 75 bpm RR Interval: 792 msec [place] Interval: 179 msec QRS Duration: 85 msec QT Interval: 387 msec QTC Interval: 416 msec P-R-T [place]: 54 - 17 - 49 degrees IMPRESSION: SINUS RHYTHM LOW QRS VOLTAGE IN PRECORDIAL LEADS [QRS DEFLECTION < 1.0 mV IN CHEST LEADS] ANTEROSEPTAL MYOCARDIAL INFARCTION [40+ ms Q WAVE IN V1-V4], OF INDETERMINATE AGE ABNORMAL ECG NO CHANGE FROM PREVIOUS TRACING NOTED Electronically Signed By: Delfino Wynn MD us Danis Christensen MD ECG ORDERABLES Fin al Result Performing Organization Address [facility]/ZIP Co de Phone Number [facility] [employer] * Screening Mammogram Bilateral W Bharath (09/15/2022 4:21 PM APPLICATIONS ARCHITECT) Anatomical Region Laterality Modality Breast Bilateral Mammography 09/15/2022 4:40 PM APPLICATIONS ARCHITECT Impressions 09/15/2022 4:40 PM APPLICATIONS ARCHITECT There is no mammographic evidence of malignancy. A 1 year screening mammogram is recommended. BI-RADS: 1 - Negative. The patient has been or will be contacted. The patient will be entered into a reminder system with a target due date of 1 year for her next mammogram. Electronically signed by: Hernando Alba M.D. Narrative 09/15/2022 4:40 PM APPLICATIONS ARCHITECT EXAMINATION: SCREENING MAMMOGRAM BILATERAL W BHARATH ORDERING HEALTHCARE PROVIDER: RAEANN DUVAL HISTORY: Routine screening mammography. COMPARISON: 07/30/2021, 01/23/2019, 05/22/2015, 06/13/2011 TECHNIQUE: CC and MLO views of the bilateral breasts were obtained with digital technique using breast tomosynthesis with C view. Computer aided detection was utilized. FINDINGS: DENSITY: The tissue of the bilateral breasts is heterogeneously dense, which may obscure small masses. BREASTS: There are no suspicious masses, suspicious calcifications, or other suspicious findings in either breast. There has been no suspicious interval change. us Raeann Duval ADVANCE SCOUT IMG MAMMO PROCEDURES Final R esult from Last 3 Months or Most Recently Relevant to Health Maintenance Insurance [facility] SHARAD EDUARDO [facility] IDPA [facility] MEDICARE ADVANTAGE Advance Directives For more information, please contact: [phone] * Full Code (Latest Code Status on File) Date Activated Date Inactivated Comments 10/28/2024 6:38 PM 10/29/2024 10:00 PM * Full Code Date Activated Date Inactivated Comments 10/28/2024 6:37 PM 10/28/2024 6:38 PM Care Teams Virtualization Engineer Relationship Specialty Start Date End Date Chayito Echavarria MD [address] [place] [address] PCP - General Family Medicine 09/25/24
--- OUTSIDE RECORDS SUMMARY | 2025-03-27 13:55 | XMS_ITS | Clinical Summary ---
Author Organization [facility] Address [address] [place] [address] Care Team Providers Care Supervisor Dairy Sanitation Name Role Phone Andres Palumbo MD Primary Care Provider [phone] Source Comments [facility],non-owned Affiliates and Associated Physician Practices is amultiple site organization consisting of ambulatory clinics and hospital sitesin [place], [place], [place] and [place]. This disclosure is being madepursuant to the Care Everywhere program and may not contain all information available regarding this patient. 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 Gender Identity Not on file Sexual Orientation Not on file Plan of Treatment Health Maintenance Due Date Last Done Comments COLOGUARD (AGES 45-75) - COL ON CA SCREENING 1965 COLON MONITORING 1965 COLONOSCOPY - COLON CA SCREENING 1965 CT COLONOGRAPHY - COLON CA SCREENING 1965 Colorectal Cancer Screening 1965 FIT - COLON CA SCREENING 1965 FLEX SIG - COLON CA SCREENING 1965 LIPID TESTING 1965 MAMMOGRAM 1965 HIV SCREENING 1980 HEPATITIS C SCREENING 06/14/1983 DTAP/TDAP/TD VACCINES (1 - Tdap) 1984 HEPATITIS B VACCINE (1 of 3 - 19+ 3-dose series) 1984 PAP SMEAR 1986 PNEUMOCOCCAL VACCINE 50+ (1 of 1 - PCV) 2015 ZOSTER VACCINE (1 of 2) 2015 COVID-19 VACCINE (1 - 2024-2 5 season) 2024 DEPRESSION SCREENING 08/07/2024 INFLUENZA VACCINE (#1) 2025 HIB VACCINE Aged Out No longer eligi ble based on patient's age to complete this topic HPV VACCINE Aged Out No longer eligi ble based on patient's age to complete this topic MENINGOCOCCAL (Group B) VACC INE SHARED DECISION-MAKING Aged Out No longer eligibl e based on patient's age to complete this topic MENINGOCOCCAL GROUPS A/C/Y/W VACCINE Aged Out No longer eligible b ased on patient's age to complete this topic Care Teams Supervisor Dairy Sanitation Relationship Specialty Start Date End Date Andres Palumbo MD [address] [place] [phone] PCP - General 04/02/18
--- OUTSIDE RECORDS SUMMARY | 2025-03-27 13:55 | XMS_ITS | Encounter Summary ---
Author Organization [facility] Address [facility] [place] [address] Care Team Providers Care Residential Advisor Name Role Phone Andres Palumbo MD Primary Care Provider [phone] Raeann Forrest NP Primary Care Provider [phone] Brisa Maldonado MD Unavailable Prince Michel MD Unavailable [phone] Chayito Echavarria MD Primary Care Provider + [phone] Encounter Details Date Type Department Care Team (Late st Contact Info) Description 01/12/2019 Abstract SFL CONVERSION [address] [place] [address] , Generic Conversion, Social History Tobacco Use Types Packs/Day Years Used Date Smoking Tobacco: Every Day Cigarettes Smokeless Tobacco: Never Alcohol Use Standard Drinks/Week Comments No 0 (1 standard drink = 0.6 oz pur e alcohol) AUDIT-C Answer Date Recorded Frequency of Alcohol Consumption Never 05/11/2018 Average Number of Drinks Not on file 018 Frequency of Binge Drinking Not on file 12/2017 Comments Unknown Sex and Gender Information Value Date Recorded Sex Assigned at Not on file Legal Sex Female 7:59 PM CDT Gender Identity Not on file Sexual Orientation Not on file documented as of this encounter Functional Status * RETIRED Are you deaf or do you have serious difficulty hearing Answer Date of Assessment Author Status No 05/12/2018 10:51 AM CDT Acti ve * RETIRED Are you blind or do you have serious difficulty seeing, even when wearing glasses? Answer Date of Assessment Author Status No 05/12/2018 10:51 AM CDT Acti ve * Do you have serious difficulty walking or climbing stairs? Answer Date of Assessment Author Status No 05/12/2018 10:51 AM CDT Adam Joseph R N Active * Do you have difficulty dressing or bathing? Answer Date of Assessment Author Status No 05/12/2018 10:51 AM CDT Aadm Joseph R N Active * Because of a physical, mental, or emotional condition, do you have difficulty doing errands alone such as visiting a doctor's office or shopping? Answer Date of Assessment Author Status No 05/12/2018 10:51 AM CDT Adam Joseph R N Active documented as of this encounter Mental Status * Because of a physical, mental, or emotional condition, do you have serious difficulty concentrating, remembering, or making decisions? Answer Entry Date Author Status No 05/12/2018 10:51 AM CDT Adam Joseph R N Active documented in this encounter Plan of Treatment Upcoming Encounters Date Type Department Care Team (Late st Contact Info) Description 08/14/2025 2:45 PM SEAL EXTRUSION OPERATOR [facility] [address] [place] [phone] Brisa Maldonado MD [address] [place] [address] documented as of this encounter Visit Diagnoses Not on filedocumented in this encounter Care Teams Residential Advisor Relationship Specialty Start Date End Date Andres Palumbo MD [address] [place] [address] PCP - General FAMILY PRACTICE 05/10/18 11/29/22 Raeann Forrest NP [address] [place] [address] PCP - General NURSE PRACTITIONER 11/30/22 11/20/24 Chayito Echavarria MD [address] [place] [address] PCP - General FAMILY PRACTICE 11/21/24 Brisa Maldonado MD [address] [place] [address] Consulting Physician CARDIOVASCULAR DISEASE 11/21/24 [place] [id number] [address] FAMILY PRACTICE 11/21/24 11/21/24 documented as of this encounter
== END 2025-03-27 13:42 | disposition home or self-care (01) ==
LOC: CHSIMG 13:45
PROVIDERS: PCP Family Medicine; Visit Provider Physician Assistant
DX: R91.1 Solitary pulmonary nodule (principal); Z12.31 Encounter for screening mammogram for malignant neoplasm of breast
CPT/HCPCS: 71250; 77063; 77067

== ENCOUNTER 2025-04-12 09:46 | Outpatient (CLI) | payer MEDICARE, MEDICAID, SELFPAY ==
--- OUTSIDE RECORDS SUMMARY | 2012-06-21 10:20 | XMS_ITS | Continuity of Care Document ---
Author Organization [facility] [facility] Address [address] [place] [address] Phone Care Team Providers Care Mailroom Clerk Name Role Phone Unavailable Unavailable Unavailable Allergies, [...] EST [facility], [address], [place], [place], [id number] , tel: [phone] [facility] back pain (chief complaint) Chronic lower back painOther chronic pain 2 No Information OFFICE/OUTPA TIENT VISIT, EST [facility], [address], [place], [place], [address] , [place] tel: [phone] [facility] back pain (chief complaint) Back painNarrowing of stools 2 No Information [facility], [address], [place], [place], [address] , [place] tel: [phone] [facility] [place] [facility] 2 Mik Bullock. [address], [place], [place], [address], [place]. tel:[phone] OFFICE/OUTPA TIENT VISIT, EST [facility], [address], [place], [place], [address] , [place] tel: [phone] [facility] f/u (chief complaint) Mucous polyp of cervix 1 No Information 1ST COMPRE PREV MED E/M NEW PT 40-64 [facility], [address], [place], [place], [address] , [place] tel: [phone] [facility] annual visit (chief complaint) Routine gynecological examinationMucou s polyp of cervixPersonal history of tobacco use 1 No Information Family History Family Member Type Diagnosis Age At Onset No Information Payers Payer name Insurance type Covered democrat ID Authoriza tion(s) No Information Social History [...] Of Treatment Date Type Action Status Goal BMP fasting. Due on 011 due Goal H&P. Due on due Goal Urinalysis. Due on 12 due Goal Breast exam. Due on 011 due Goal PAP. Due on due Future Order: Lab Order URINALYS IS, [...]
--- NOTE | ~2025-04-12 | MR_ITS ---
EXAMINATION: MRA neck wo/w con DATE: 04/12/2025 11:17 INDICATION: Episodic lightheadedness. TECHNIQUE: Magnetic resonance angiography (MRA) of the neck was performed without and with 15 mL MultiHance intravenous contrast. Sequences included axial 2D-time of flight T1-weighted FSPGR, axial Inhance, and coronal T1-weighted FSPGR without and with intravenous contrast. COMPARISON: None. FINDINGS: The vertebral arteries are codominant. There is no significant stenosis of the vertebral arteries. There is 0% stenosis of the proximal right internal carotid artery relative to normal distal artery lumen diameter (NASCET criteria). There is 0% stenosis of the proximal left internal carotid artery relative to normal distal artery lumen diameter. IMPRESSION: 1. 0% stenosis of the proximal internal carotid arteries relative to normal distal artery lumen diameters (NASCET criteria). Reviewed, dictated and finalized at location E. IMPRESSION: 1. 0% stenosis of the proximal internal carotid arteries relative to normal dis dhara artery lumen diameters (NASCET criteria).
--- NOTE | ~2025-04-12 | MR_ITS ---
EXAMINATION: MRA brain wo con DATE: 04/12/2025 11:17 INDICATION: Episodic lightheadedness. TECHNIQUE: Magnetic resonance angiography (MRA) of the brain was performed without intravenous contrast with T1-weighted SPGR by the 3D [id number] technique. Maximum intensity projection 3D-reconstructions were obtained. COMPARISON: None. FINDINGS: The vertebral arteries are codominant. There is no significant stenosis of basilar artery or the posterior cerebral arteries. The posterior communicating arteries are normal. There is no significant stenosis of the intracranial internal carotid arteries or anterior or middle cerebral arteries. Anterior communicating artery is normal. There is no aneurysm. IMPRESSION: 1. Normal MRA. Reviewed, dictated and finalized at location E. IMPRESSION: 1. Normal MRA.
--- OUTSIDE RECORDS SUMMARY | 2025-04-12 09:50 | XMS_ITS | Clinical Summary ---
Author Organization [facility] Address [address] [place] [address] Phone Care Team Providers Care Sr. Payroll Manager Name Role Phone Lon Raeann Vidal APRN, BUTTON MAKER Primary Care Provider Allergies Active Allergy Reactions [...] Group - Pulmonology & Sleep Medicine - [facility] [address] [place] [address] Mirella Cotter APRN, BUTTON MAKER [address] [facility] [address] [place] [address] Health Maintenance Due Date Last Done Comments [...] topic Insurance MEDICAID [place] MEDICARE Care Teams Sr. Payroll Manager Relationship Specialty Start Date End Date Raeann Forrest APRN, BUTTON MAKER [address] [place] [address] PCP - General Advanced Practice Nurse 07/28/21
--- OUTSIDE RECORDS SUMMARY | 2025-04-12 09:50 | XMS_ITS | Clinical Summary ---
Author Organization [facility] Address [address] [place] [address] Care Team Providers Care Electrical Line Mechanic Name Role Phone Brisa Maldonado MD Unavailable Chayito Hernadez MD Primary Care Provider [phone] Allergies Active Allergy Reactions Criticality Noted Date Comments Clarithromycin Other (see comment) High 05/10/2018 Stomach cramps Codeine Unknown Penicillin V Hives High 05/10/2018 Medications vitamin D2, ergocalciferol, [address] UNITS capsule Take 1 capsule (50,000 Units [...] HHS/HCC) 05/27/2018 Coronary artery disease invo lving [place] coronary artery of [place] heart without angina pectoris 05/27/2018 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 05/27/2018 Hypertension, essential 05/27/2018 Mild concentric left ventricular hypertrophy (LV H) 05/27/2018 Mixed hypercholesterolemia and hypertriglyceride phani 05/27/2018 NSTEMI (non-ST elevated myoc ardial infarction) ([facility]) 05/10/2018 Pulmonary emphysema ([facility]) 05/10/2018 Immunizations Immunization Administration Dates Next Due [...] st Contact Info) Description 08/14/2025 2:45 PM AUCTIONEER AUTOMOBILE [facility] [address] [place] [address] Brisa Maldonado MD [address] [place] [address] Health Maintenance Due Date Last Done [...] this topic Medical Devices Implanted Type Area Medical/Surgery Registered Nurse Device Identifier Shelf Expiration Date Model / Serial / Lot Cv Xience Matilda Jose G [id number] /[id number] Implanted:Qty: 1 on 05/10/2018 by Isaiah Marlow do, MD Stent Coronary [employer] 03/01/2019 [id number] Procedures Procedure Name Priority Date/Time Associated Diagnosis Comments HUMAN PAPILLOMAVIRUS, HIGH-RISK TYPES Routine 10/18/2023 8:00 AM CDT CYTOPATH CERV/VAG THIN LAYER Routine 10/18/2023 12:00 AM CDT MG SCREENING W ILYA VISHNU DIGI Routine 08/16/2023 8:16 AM AUCTIONEER AUTOMOBILE Visit for screening mammogram LIPID PANEL Routine 05/11/2018 4:05 AM CDT HEMOGLOBIN, GLYCOSYLATED Routine 05/11/2018 4:05 AM CDT from Last 3 Months or Most Recently Relevant to Health Maintenance Results * HUMAN PAPILLOMAVIRUS, HIGH-RISK TYPES (10/18/2023 8:00 AM CDT) SPECIMEN CERVIX 10/20/2023 9:34 AM CDT [facility] HPV DNA HIGH RISK NEGATIVE NEGATIVE 10/21/2023 12:39 AM CDT [facility] Comment:SEE CYTOLOGY REPORT 10/18/2023 8:00 AM CDT us Margarette Wylie MD PATHOLOGY/CYTOLOGY ORDERABLES Final Result [facility] [address] [place] [id number], * Cytopath Cerv/Vag Thin Layer (10/18/2023 12:00 AM CDT) THIN PREP PAP [facility] [address] [place] [address] Department of Pathology Pathology Report CERVICAL/VAGINAL PAP SMEAR REPORT Name: NASIM PADRON Age: 11 1965 (Age: 58) Location: [facility] Sex: F Collected Date: 10/18/2023 [facility] #: [id number] Date Received: 10/19/2023 Date Reported: 10/26/2023 Provider: [...] 45,51,52,56,58,59, 66, and 68. Electronically Signed Out [facility] Yuan (AS[facility]) CLINICAL HISTORY Z12.4 CERVICAL [...] is not effective in detecting cervical adenocarcinoma. [facility] 10/18/2023 10/19/2023 10: 21 AM CDT Comment:CERVICAL/ENDOCERVICA L us Margarette Wylie MD PATHOLOGY/CYTOLOGY ORDERABLES Final Result [facility] [address] [place] [address], * MG SCREENING W ILYA GUERRAI (08/16/2023 8:16 AM AUCTIONEER AUTOMOBILE) Anatomical Region Laterality Modality Breast Bilateral Mammography 08/16/2023 12:5 8 PM AUCTIONEER AUTOMOBILE Narrative 08/16/2023 1:02 PM AUCTIONEER AUTOMOBILE EXAMINATION: BILATERAL SCREENING MAMMOGRAPHY Exam Date: 08/16/2023 [...] - 6.3 % 05/11/2018 4:52 AM CDT [facility] ESTIMATED AVG GLUCOSE 140(H) 74 - 106 MG/DL 05/11/2018 4:52 AM CDT [facility] 05/11/2018 4:05 AM CDT us Conner Pickett MD LABORATORY Final Result [facility] [address] [place] [address], [id number] * (ABNORMAL) LIPID PANEL (05/11/2018 4:05 AM CDT) CHOLESTEROL 186 MG/DL 05/11/2018 4:44 AM CDT [facility] Comment:DESIRABLE: <200 TRIGLYCERIDES 224 MG/DL 05/11/2018 4:44 AM CDT [facility] Comment:200-499 HIGH HDL 27(L) >49 MG/DL 05/11/2018 4:44 AM CDT [facility] LDL (CALCULATED) 114 MG/DL 05/11/20 18 4:44 AM CDT [facility] Comment:100-129 NEAR OR ABOV E OPTIMAL VLDL CALCULATION 45 MG/DL 05/11/20 18 4:44 AM CDT [facility] Comment:REFERENCE RANGE NOT ESTABLISHED CHOL/HDL RATIO 6.9 05/11/2018 4:44 AM CDT [facility] Comment:REFERENCE RANGE NOT ESTABLISHED LDL/HDL 4.2 05/11/2018 4:44 AM CDT [facility] Comment:REFERENCE RANGE NOT ESTABLISHED NON HDL CHOLESTEROL 159 MG/DL 05/11/2018 4:44 AM CDT [facility] Comment:REFERENCE RANGE NOT ESTABLISHED 05/11/2018 4:05 AM CDT Isaiah Charles MD LABORATORY Sonia l Result [facility] [address] [place] [address], [id number] from Last 3 Months or Most Recently Relevant to Health Maintenance Insurance MEDICAID MEDICARE [facility] Advance Directives * Full Code (Latest Code Status on File) Date Activated Date Inactivated Comments 05/10/2018 11:55 PM 05/12/2018 1:25 PM * Full Code Date Activated Date Inactivated Comments 05/10/2018 11:22 PM 05/10/2018 11:54 PM * Full Code Date Activated Date Inactivated Comments 05/10/2018 11:22 PM 05/10/2018 11:22 PM Care Teams Electrical Line Mechanic Relationship Specialty Start Date End Date Chayito Hernadez MD [address] [place] [phone] PCP - General FAMILY PRACTICE 11/21/24 Brisa Maldonado MD [address] [place] [address] Consulting Physician CARDIOVASCULAR DISEASE 11/21/24
--- OUTSIDE RECORDS SUMMARY | 2025-04-12 09:51 | XMS_ITS | Encounter Summary ---
Author Organization [facility] Address [facility] [place] [address] Care Team Providers Care Toll Settlement Clerk Name Role Phone Andres Palumbo MD Primary Care Provider [phone] Raeann Forrest NP Primary Care Provider [phone] Brisa Maldonado MD Unavailable Prince Michel MD Unavailable [phone] Chayito Echavarria MD Primary Care Provider [phone] Encounter Details Date Type Department Care Team (Late st Contact Info) Description 01/12/2019 Abstract SFL CONVERSION [address] [place] [address] , Generic Conversion, Social History [...] CDT Adam Joseph R N Active * Because of [...] st Contact Info) Description 08/14/2025 2:45 PM HERITAGE CONSULTANT [facility] [address] [place] [id number] Brisa Maldonado MD [address] [place] [address] documented as of this encounter Visit Diagnoses Not on filedocumented in this encounter Care Teams Toll Settlement Clerk Relationship Specialty Start Date End Date Andres Palumbo MD [address] [place] [address] PCP - General FAMILY PRACTICE 05/10/18 11/29/22 Raeann Forrest NP [address] [place] [address] PCP - General NURSE PRACTITIONER 11/30/22 11/20/24 Chayito Echavarria MD [address] [place] [address] PCP - General FAMILY PRACTICE 11/21/24 Brisa Maldonado MD [address] [place] [address] Consulting Physician CARDIOVASCULAR DISEASE 11/21/24 [place] [address] [address] FAMILY PRACTICE 11/21/24 11/21/24 documented as of this encounter
--- OUTSIDE RECORDS SUMMARY | 2025-04-12 09:51 | XMS_ITS | Clinical Summary ---
Author Organization [facility] Address [address] [place] [address] Care Team Providers Care Road Cleaner Name Role Phone Chayito Echavarria MD Primary [...] CDT - 03/08/2025 1:05 AM CDT Emergency [facility] Emergency Department [address] [id number] Danis Christensen MD [place], MD Maribell Boone [...] Tobacco: Never Tobacco Cessation:Counseling Given: Not Answered [facility] Utilities Answer Date Recorded In the [...] often do you attend chur ch or holiness services? 1 to 4 times per year 10/29/2024 Do you belong to any clubs o r organizations such as catholic groups, unions, fraternal or athletic groups, or [...] any time in the past 12 m [facility], were you homeless or living in a detention (including now)? No 10/29/2024 Personal Safety Answer Date Recorded Have you ever been in or are you currently in a harmful physical or emotional relationship or is someone making you feel afraid or unsafe? Denies 03/07/2025 Comments No Sex and Gender Information Value Date Recorded Sex Assigned at Not on file Legal Sex Female 3:51 AM LOSS PREVENTION INVESTIGATOR Gender Identity Not on file Sexual Orientation [...] Read Routine (OP Routine) 09/15/2022 4:21 PM LOSS PREVENTION INVESTIGATOR Encounter for screening mammogram for malignant neoplasm [...] ORDERABLE S Final Result Performing Organization Address [facility] Co de Phone Number [facility] (NASIR) [address] [facility] [place] [address] * BRENT ab ql w/rflx to BRENT [...] last revised on 2020. Testing performed by: [facility], [address] [facility] [place] [address] Blood 03/07/2025 7:17 PM CDT 03/08/2025 2:44 PM CDT Brian Herrera MD LAB BLOOD ORDERABLES Final Result Performing Organization Address [facility] Co de Phone Number [facility] (NASIR) [address] [facility] [place] [address] * CTA Head Neck W WO Contrast [...] CT 03/07/2025 and 10/28/2024 FINDINGS: INTRACRANIAL VESSELS [place]: The anterior, middle, posterior cerebral [...] Bayron Crowley M.D. AT: AT Report ID: [id number] Reading Location: [id number] Procedure Note Bayron Crowley MD - 03/07/2025 EXAM DESCRIPTION: CTA HEAD NECK W WO CONTRAST REASON FOR STUDY: Ophthalmoplegia, Transient ischemic attack (TIA) Pt states she wasn't feeling well while [facility] Pt states she has been feeling [...] CT 03/07/2025 and 10/28/2024 FINDINGS: INTRACRANIAL VESSELS [place]: The anterior, middle, posterior cerebral [...] Bayron Crowley M.D. AT: AT Report ID: [id number] Reading Location: [id number] us Brian Herrera MD IMG CT PROCEDURES Final Res ult * Troponin T high-sensitivity 4-hour (03/07/2025 5:35 PM CDT) Trop T hs <6 <=14 ng/L [facility] (NASIR) Comment: Interpretive Data For further hscTnT resources including the diagnostic algorithm and an aid in interpretation, copy and paste this link: https://[employer]org/show/hsTrop Current Interpretive Data last revised 2020. Trop T hs delta 0 ng/L [facility] (NASIR) Trop T hs interp Insignificant [facility] (NASIR) Blood 03/07/2025 5:35 PM CDT 03/07/2025 5:38 PM CDT us Danis Christensen MD LAB BLOOD ORDERABLE S Final Result [facility] ([place]) [address] [facility] [place] [address] * Troponin T high-sensitivity 2-hour (03/07/2025 3:07 PM CDT) Trop T hs <6 <=14 ng/L [facility] (NASIR) Comment: Interpretive Data For further hscTnT resources including the diagnostic algorithm and an aid in interpretation, copy and paste this link: https://nrl.[employer].org/show/hsTrop Current Interpretive Data last revised 2020. Trop T hs delta 0 ng/L [facility] (NASIR) Trop T hs interp Insignificant [facility] (NASIR) Blood 03/07/2025 3:07 PM CDT 03/07/2025 3:09 PM CDT us Danis Christensen MD LAB BLOOD ORDERABLE S Final Result [facility] (NASIR) [address] [facility] [place] [address] * CT Head WO Contrast (03/07/2025 2:30 [...] Johnny Wakefield M.D. AM: AM Report ID: [id number] Reading Location: [id number] Procedure Note Johnny Wakefield MD - 03/07/2025 [...] Johnny Wakefield M.D. AM: AM Report ID: [id number] Reading Location: [id number] Danis Christensen MD IMG CT PROCEDURES F [...] for uric acid stone formation. Source: [employer] Current Interpretive Data was last revised on 2017 Protein, ur ql Negative Negative [facility] (NASIR) Glucose, ur ql Negative Negative [facility] (NASIR) Ketones, ur Negative Negative [facility] (NASIR) Bilirubin, ur Negative Negative [facility] (ANSIR) Blood, ur Negative Negative [facility] (NASIR) Urobilinogen, ur <2.0 <2.0 mg/dL [facility] (NASIR) Nitrite, ur Negative Negative [facility] (NASIR) Leukocyte esterase, ur 1+(A) Negative [facility] (NASIR) UA reflex comment Reflex to microscopic UA will be performed. [facility] (NASIR) Urine 03/07/2025 1:29 PM CDT 03/07/2025 1:32 PM CDT Danis Christensen MD LAB MICROBIOLOGY - GENERAL ORDERABLES Final Result Performing Organization Address City/[facility] Co de Phone Number [facility] (NASIR) [address] [facility] [place] [address] * (ABNORMAL) Urinalysis, microscopic only (03/07/2025 1:29 PM CDT) WBC, ur 6-10(A) 0 - 5 /HPF RBC, ur 0-2 0 - 2 /HPF [facility] (NASIR) Epithelial cells, squamous, ur 1-5 0 - 5 /HPF [facility] (NASIR) Bacteria, ur Trace(A) [facility] (NASIR) Mucous, ur Present(A) CERNER A ([place]) Culture Reflex Comment Reflex conditions for urine culture (WBC >10) not met. [facility] (NASIR) Urine 03/07/2025 1:29 PM CDT 03/07/2025 1:32 PM CDT Danis Christensen MD LAB URINE ORDERABLE S Final Result Performing Organization Address [facility] Co de Phone Number [facility] (NASIR) 1 [facility] [place] [address] * Troponin T high-sensitivity series (baseline, 2hr, [...] BLOOD ORDERABLE S Final Result [facility] ([place]) [address] [facility] [place] [address] * eGFR (03/07/2025 1:02 PM CDT) eGFR [...] BLOOD ORDERABLE S Final Result [facility] ([place]) [address] [facility] [place] [address] * Differential, auto (03/07/2025 1:02 PM CDT) [...] S Final Result [facility] (NASIR) [address] [facility] [place] [address] * CBC with auto differential (03/07/2025 1:02 [...] S Final Result [facility] (NASIR) 1 [facility] [place] [address] * Erythrocyte sedimentation rate (03/07/2025 1:02 PM CDT) Erythrocyte sedimentation rate 15 1 - 30 mm/hr Blood 03/07/2025 1:02 PM CDT 03/07/2025 6:12 PM CDT us Brian Herrera MD LAB BLOOD ORDERABLES Final Result [facility] (NASIR) [address] [facility] [place] [address] * Magnesium (03/07/2025 1:02 PM CDT) Magnesium 1.4 1.4 - 2.5 mg/dL [facility] (NASIR) Blood 03/07/2025 1:02 PM CDT 03/07/2025 1:07 PM CDT us Danis Christensen MD LAB BLOOD ORDERABLE S Final Result Performing Organization Address City/[facility]/ZIP Co de Phone Number [facility] (NASIR) [address] [facility] [place] [address] * (ABNORMAL) Comprehensive metabolic panel (03/07/2025 1:02 PM CDT) Sodium 142 135 - 145 mmol/L [facility] (NASIR) Potassium, pl 3.8 3.3 - 4.9 mmol/L [facility] (NASIR) Chloride 106 97 - 110 mmol/L [facility] (NASIR) CO2 22 22 - 32 mmol/L [facility] (NASIR) Anion gap 14 2 - 15 mmol/L [facility] (NASIR) BUN 12 6 - 25 mg/dL [facility] (NASIR) Creatinine 0.68 0.60 - 1.10 [...] ORDERABLE S Final Result Performing Organization Address [facility]/ZIP Co de Phone Number [facility] (NASIR) [address] [facility] [place] [address] * ECG 12 lead (03/07/2025 12:53 PM CDT) 03/07/2025 12:5 3 PM CDT Narrative [facility] - 03/07/2025 3:33 PM CDT Vent Rate: 75 bpm RR Interval: 792 msec OR Interval: 179 msec QRS Duration: 85 msec QT Interval: 387 msec QTC Interval: 416 msec P-R-T Arrey: 54 - 17 - 49 degrees IMPRESSION: SINUS RHYTHM LOW QRS VOLTAGE IN PRECORDIAL LEADS [QRS DEFLECTION < 1.0 mV IN CHEST LEADS] ANTEROSEPTAL MYOCARDIAL INFARCTION [40+ ms Q WAVE IN V1-V4], OF INDETERMINATE AGE ABNORMAL ECG NO CHANGE FROM PREVIOUS TRACING NOTED Electronically Signed By: Delfino Wynn MD us Danis Christensen MD ECG ORDERABLES Fin al Result Performing Organization Address [facility]/ZIP Co de Phone Number [facility] * Screening Mammogram Bilateral W Bharath (09/15/2022 4:21 PM LOSS PREVENTION INVESTIGATOR) Anatomical Region Laterality Modality Breast Bilateral Mammography 09/15/2022 4:40 PM LOSS PREVENTION INVESTIGATOR Impressions 09/15/2022 4:40 PM LOSS PREVENTION INVESTIGATOR There is no mammographic evidence of malignancy. A 1 year screening mammogram is recommended. BI-RADS: 1 - Negative. The patient has been or will be contacted. The patient will be entered into a reminder system with a target due date of 1 year for her next mammogram. Electronically signed by: Hernando Alba M.D. Narrative 09/15/2022 4:40 PM LOSS PREVENTION INVESTIGATOR EXAMINATION: SCREENING MAMMOGRAM BILATERAL W BHARATH ORDERING [...] no suspicious interval change. us Raeann Duval HOSPITAL STAFF PHARMACIST IMG MAMMO PROCEDURES Final R esult from Last 3 Months or Most Recently Relevant to Health Maintenance Insurance [facility] SHARAD EDU[facility]O [facility] IDPA [facility] MEDICARE ADVANTAGE Advance Directives For more information, please contact: [phone] * Full Code (Latest Code Status on File) Date Activated Date Inactivated Comments 10/28/2024 6:38 PM 10/29/2024 10:00 PM * Full Code Date Activated Date Inactivated Comments 10/28/2024 6:37 PM 10/28/2024 6:[address] Cleaner Relationship Specialty Start Date End Date Chayito Echavarria MD [address] [place] [address] PCP - General Family Medicine 09/25/24
--- OUTSIDE RECORDS SUMMARY | 2025-04-12 09:51 | XMS_ITS | Clinical Summary ---
Author Organization [facility] Address [address] [place] [address] Care Team Providers Care Software Analyst Name Role Phone Andres Palumbo MD Primary Care Provider [phone] Source Comments [facility],non-owned Affiliates and Associated Physician Practices is amultiple site organization consisting of ambulatory clinics and hospital sitesin [place], [place], [place] and [place]. This disclosure is being madepursuant to the Care Everywhere program and may not contain all information available regarding this patient. Last updated 18.[facility] Social History Tobacco Use Types Packs/Day Years Used Date Smoking Tobacco: Never Assessed Comments Unknown Sex and Gender Information Value Date Recorded Sex Assigned at Not on file Legal Sex Female 6:22 AM VALVE MAKER Gender Identity Not on file Sexual Orientation [...] 2015 ZOSTER VACCINE (1 of 2) 2015 DEPRESSION SCREENING 08/07/2024 COVID-19 VACCINE ( - 2023-2 5 season) 2025 INFLUENZA VACCINE (#1) 2025 HIB VACCINE Aged [...] age to complete this topic Care Teams Software Analyst Relationship Specialty Start Date End Date Andres Palumbo MD [address] [place] [phone] PCP - General 04/02/18
--- OUTSIDE RECORDS SUMMARY | 2025-04-12 09:51 | XMS_ITS | Encounter Summary ---
Author Organization [facility] Address [address] [place] [address] Phone Care Team Providers Care Merchandising Representative Name Role Phone Raeann Forrest APRN, CNP Primary Care Provider Mirella Cotter APRN, CNP Unavailable [phone] Reason for Visit * Reason Comments Medication Refill Encounter Details Date Type Department Care Team (Late st Contact Info) Description 11/08/2022 Refill [facility] - Pulmonology & Sleep Medicine [facility] [address] [place] [address] Mirella Cotter APRN, CNP [address] [address] Medication Refill Social History Tobacco Use Types [...] Description 05/30/2025 10:00 AM CDT Office Visit [facility] - Pulmonology & Sleep Medicine - [place] [address] [place] [address] Mirella Cotter APRN, CNP [address] [address] documented as of this encounter Visit Diagnoses Diagnosis Personal history of tobacco use Personal history of tobacco use, presenting hazards to health documented in this encounter Care Teams Merchandising Representative Relationship Specialty Start Date End Date Raeann Forrest APRN, CNP [address] [place] [address] PCP - General Advanced Practice Nurse 07/28/21 Mirella Cotter APRN, CNP #[address] [address] Nurse Practitioner Advanced Practice Nurse 10/28/2112/08/24 documented as of this encounter
--- OUTSIDE RECORDS SUMMARY | 2025-04-12 09:51 | XMS_ITS | Encounter Summary ---
Author Organization [facility] Address [address] [place] [address] Phone Care Team Providers Care Book Repairer Name Role Phone Raeann Forrest APRN, CNP Primary Care Provider Mirella Cotter APRN, CNP Unavailable [phone] Reason for Visit * Reason Comments Medication Refill Encounter Details Date Type Department Care Team (Late st Contact Info) Description 12/08/2022 Refill [facility] - Pulmonology & Sleep Medicine [facility] [address] [place] [address] Mirella Cotter APRN, CNP #[address] [address] Medication Refill Social History Tobacco Use Types [...] Description 05/30/2025 10:00 AM CDT Office Visit [facility] - Pulmonology & Sleep Medicine - [place] [address] [place] [address] Mirella Cotter APRN, CNP #[address] [address] documented as of this encounter Visit Diagnoses Diagnosis Personal history of tobacco use Personal history of tobacco use, presenting hazards to health documented in this encounter Care Teams Book Repairer Relationship Specialty Start Date End Date Raeann Forrest APRN, CNP [address] [place] [address] PCP - General Advanced Practice Nurse 07/28/21 Mirella Cotter APRN, CNP #[address] [address] Nurse Practitioner Advanced Practice Nurse 10/28/2112/08/24 documented as of this encounter
--- OUTSIDE RECORDS SUMMARY | 2025-04-12 09:51 | XMS_ITS | Encounter Summary ---
Author Organization [facility] Address [address] [place] [address] Phone Care Team Providers Care Childcare Aide Name Role Phone Raeann Forrest APRN, CNP Primary Care Provider Mirella Cotter APRN, CNP Unavailable [phone] Reason for Visit * Reason Comments Medication Refill Encounter Details Date Type Department Care Team (Late st Contact Info) Description 10/07/2022 Refill [facility] - Pulmonology & Sleep Medicine [facility] [address] [place] [address] Mirella Cotter APRN, CNP [address] [address] Medication Refill Social History Tobacco Use Types [...] Kemi Felix RN - 10/10/2022 8:39 AM SULPHATE TESTER Medication failed the protocol, provider to review [...] Cotter APRN, CNP [facility] Showing recent visits within past 182 days and meeting all other requirements Future Appointments No visits were found meeting these conditions. Showing future appointments within next 90 days and meeting all other requirements HATE TESTER documented in this encounter Plan of Treatment Upcoming Encounters Date Type Department Care Team ([facility] st Contact Info) Description 05/30/2025 10:00 AM CDT Office Visit [facility] - Pulmonology & Sleep Medicine [facility] [address] [place] [address] Mirella Cotter APRN, MELVA [address] [address] documented as of this encounter Visit Diagnoses Diagnosis Personal history of tobacco use Personal history of tobacco use, presenting hazards to health documented in this encounter Care Teams Childcare Aide Relationship Specialty Start Date End Date Raeann Forrest APRN, CNP [address] [place] [address] PCP - General Advanced Practice Nurse 07/28/21 Mirella Cotter APRN, CNP #[address] [address] Nurse Practitioner Advanced Practice Nurse 10/28/2112/08/24 documented as of this encounter
== END 2025-04-12 09:47 | disposition home or self-care (01) ==
PROVIDERS: PCP Family Medicine; Visit Provider Physician Assistant
DX: R91.1 Solitary pulmonary nodule (principal); R42 Dizziness and giddiness
CPT/HCPCS: 70544; 70549; A9577

== ENCOUNTER 2025-05-06 16:08 | Outpatient (CLI) | payer MEDICARE, MEDICAID, SELFPAY ==
--- OUTSIDE RECORDS SUMMARY | 2012-06-21 10:20 | XMS_ITS | Continuity of Care Document ---
Author Organization [employer] [facility] Address [address] [place] [address] Phone Care Team Providers Care Field Placement Director Name Role Phone Unavailable Unavailable Unavailable Allergies, Adverse Reactions, Alerts Substance Reaction Status Criticality clarithromycin Unknown Active No Informatio n clarithromycin stomach cramps Active No Informat ion PENICILLIN G POTASSIUM Hives Active No In formation Medications Medication Instructions Dosage Effective Dates (start - stop) Status Comments tramadol 50 mg tablet take 1 tablet (50M G) by oral route 2 times every day as needed 50 MG - Active Flexeril 10 mg tablet take 1 tablet (10M G) by oral route 3 times every day 10 MG - Active ranitidine 150 mg Tab take 1 tablet (150 MG) by oral route 2 times every day - Active bupropion HCl XL 150 mg 24 hr Tab take 1 tablet (150MG) by ORAL route 2 times every day 150 MG - Active Procedures Procedure Date OFFICE/OUTPATIENT VISIT, EST OFFICE/OUTPATIENT VISIT, EST Limit oral eval problem focused 012 Periapical first film Extraction erupted tooth or exposed root OFFICE/OUTPATIENT VISIT, EST Wet jone, including preparations of va ginal, cervical or skin specimens 1ST COMPRE PREV MED E/M NEW PT 40-64 Jun Advance Directives Directive Yes / No Effective Date File Name Resuscitation Not Answered N/A N/A Life Support Not Answered N/A N/A Intubation Not Answered N/A N/A Antibiotics Not Answered N/A N/A IV Fluid Support Not Answered N/A N/A Tube Feed Not Answered N/A N/A Other Directive N/A N/A WARNING:The information contained in this section is historical and is provided for information only and does not constitute a legal document or any assurance that the information is still accurate. Please verify the information with the jimenez of the legal document before using it for clinical purposes. Encounters Encounter Description Practice Location Reason(s) For Visit Diagnoses Date Provider Providers Copied on Encounter OFFICE/OUTPA TIENT VISIT, EST [facility], [address], [place], [place], [id number] , tel: [phone] [facility] back pain (chief complaint) Chronic lower back painOther chronic pain 2 No Information OFFICE/OUTPA TIENT VISIT, EST [facility], [address], [place], [place], [id number] , [place] tel: [phone] [facility] back pain (chief complaint) Back painNarrowing of stools 2 No Information [facility], [address], [place], [place], [address] , [place] tel: [phone] [facility] 2 Mik Bullock. [address], [place], [place], [address], [place]. tel:[phone] OFFICE/OUTPA TIENT VISIT, EST [facility], [address], [place], [place], [address] , [place] tel: [phone] [facility] f/u (chief complaint) Mucous polyp of cervix 1 No Information 1ST COMPRE PREV MED E/M NEW PT 40-64 [facility], [address], [place], [place], [address] , [place] tel: [phone] [facility] annual visit (chief complaint) Routine gynecological examinationMucou s polyp of cervixPersonal history of tobacco use 1 No Information Family History Family Member Type Diagnosis Age At Onset No Information Payers Payer name Insurance type Covered green party ID Authoriza tion(s) No Information Social History Type Description Quantity Date Captured Comments Alcohol Use Details Unknown Caffeine Use Details Unknown Tobacco Use Status Smoking Status No Information Sex Female Vital Signs Date / Time: Height Weight BMI Pulse Rate Blood Pressure Temperature Respiratory Rate Body Surface Area Head Circumference Head Circ. Percentile Wt./Josias. Percentile BMI percentile Pulse Ox Inhaled Ox 3:51 PM 64.00 in 181.00 lbs 31.0 7 kg/m eter (2) 89 /min 143/90 mm[Hg] 1.92 meter(2) Chief Complaint And Reason For Visit From encounter dated '06/21/2012 15:20'. back pain (chief complaint) Reason For Referral Reason For Referral No Information Plan Of Treatment Date Type Action Status Goal PAP. Due on due Goal Urinalysis. Due on 12 due Goal H&P. Due on due Goal BMP fasting. Due on 011 due Goal Breast exam. Due on 011 due Future Order: Lab Order URINALYS IS, MACROSCOPIC ([id number]), Appointment on: , Sent on: Sent Future Order: Lab Order Wet Prep (Wet Prep), Appointment on: Ordered History Of Present Illness Encounter Date Complaint History Of Prese nt Illness No Information Functional Status Date Functional Assessmen t No Information Instructions Date Instruction Additional Infor mation Monitor lifting Take medications as prescribed Continue current medication Assessments Type Assessment Date No Information Patient Care Teams Name Effective Dates (start - stop) Status Members No Information
--- NOTE | ~2025-05-06 | XR_ITS ---
EXAMINATION: XR knee RT 3V, 05/06/2025 16:15 CDT HISTORY: arthralgia of knee COMPARISON: No comparisons available. Findings: No acute fracture or malalignment. No significant degenerative changes. Soft tissues unremarkable. Impression: No acute fracture or malalignment. Reviewed, dictated and finalized at location P. Impression: No acute fracture or malalignment.
--- OUTSIDE RECORDS SUMMARY | 2025-05-06 16:12 | XMS_ITS | Clinical Summary ---
Author Organization [facility] Address [address] [place] [address] Care Team Providers Care Construction Recruiter Name Role Phone Brisa Maldonado MD Unavailable Chayito Hernadez MD Primary Care Provider +- [phone] Allergies Active Allergy Reactions Criticality Noted Date Comments Clarithromycin Other (see comment) High 05/10/2018 Stomach cramps Codeine Unknown Penicillin V Hives High 05/10/2018 Medications vitamin D2, ergocalciferol, 28426 UNITS capsule Take 1 capsule (50,000 Units [...] HHS/HCC) 05/27/2018 Coronary artery disease invo lving [place] coronary artery of [place] heart without angina pectoris 05/27/2018 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 05/27/2018 Hypertension, essential 05/27/2018 Mild concentric left ventricular hypertrophy (LV H) 05/27/2018 Mixed hypercholesterolemia and hypertriglyceride phani 05/27/2018 NSTEMI (non-ST elevated myoc ardial infarction) ([facility]) 05/10/2018 Pulmonary emphysema ([facility]) 05/10/2018 Immunizations Immunization Administration Dates Next Due [...] st Contact Info) Description 08/14/2025 2:45 PM PLASTER MECHANIC [facility] [address] [place] [address] Brisa Maldonado MD [address] [place] [phone] Health Maintenance Due Date Last Done [...] this topic Medical Devices Implanted Type Area Sand Polisher Device Identifier Shelf Expiration Date Model / Serial / Lot Cv Xience Matilda Jose G [id number] /[id number] Implanted:Qty: 1 on 05/10/2018 by Isaiah Marlow do, MD Stent Coronary [employer] 03/01/2019 [id number] Procedures Procedure Name Priority Date/Time Associated Diagnosis Comments HUMAN PAPILLOMAVIRUS, HIGH-RISK TYPES Routine 10/18/2023 8:00 AM CDT CYTOPATH CERV/VAG THIN LAYER Routine 10/18/2023 12:00 AM CDT MG SCREENING W ILYA VISHNU DIGI Routine 08/16/2023 8:16 AM PLASTER MECHANIC Visit for screening mammogram LIPID PANEL Routine 05/11/2018 4:05 AM CDT HEMOGLOBIN, GLYCOSYLATED Routine 05/11/2018 4:05 AM CDT from Last 3 Months or Most Recently Relevant to Health Maintenance Results * HUMAN PAPILLOMAVIRUS, HIGH-RISK TYPES (10/18/2023 8:00 AM CDT) SPECIMEN CERVIX 10/20/2023 9:34 AM CDT [facility] HPV DNA HIGH RISK NEGATIVE NEGATIVE 10/21/2023 12:39 AM CDT [facility] Comment:SEE CYTOLOGY REPORT 10/18/2023 8:00 AM CDT us Margarette Wylie MD PATHOLOGY/CYTOLOGY ORDERABLES Final Result [facility] [address] [place] [address], * Cytopath Cerv/Vag Thin Layer (10/18/2023 12:00 AM CDT) THIN PREP PAP [facility] [address] [place] [address] Department of Pathology Pathology Report CERVICAL/VAGINAL PAP SMEAR REPORT Name: NASIM PADRON Age: 11 1965 (Age: 58) Location: [facility] Sex: F Collected Date: 10/18/2023 [facility] #: [id number] Date Received: 10/19/2023 Date Reported: 10/26/2023 Provider: [...] 45,51,52,56,58,59, 66, and 68. Electronically Signed Out [facility] HOA Yuan (ASCP) CLINICAL HISTORY Z12.4 CERVICAL [...] is not effective in detecting cervical adenocarcinoma. [facility] 10/18/2023 10/19/2023 10: 21 AM CDT Comment:CERVICAL/ENDOCERVICA L us Margarette Wylie MD PATHOLOGY/CYTOLOGY ORDERABLES Final Result [facility] [address] [place] [address], * MG SCREENING W ILYA GUERRAI (08/16/2023 8:16 AM PLASTER MECHANIC) Anatomical Region Laterality Modality Breast Bilateral Mammography 08/16/2023 12:5 8 PM PLASTER MECHANIC Narrative 08/16/2023 1:02 PM PLASTER MECHANIC EXAMINATION: BILATERAL SCREENING MAMMOGRAPHY Exam Date: 08/16/2023 [...] - 6.3 % 05/11/2018 4:52 AM CDT [facility] ESTIMATED AVG GLUCOSE 140(H) 74 - 106 MG/DL 05/11/2018 4:52 AM CDT [facility] 05/11/2018 4:05 AM CDT us Conner Pickett MD LABORATORY Final Result [facility] [address] [place] [address], [id number] * (ABNORMAL) LIPID PANEL (05/11/2018 4:05 AM CDT) CHOLESTEROL 186 MG/DL 05/11/2018 4:44 AM CDT [facility] Comment:DESIRABLE: <200 TRIGLYCERIDES 224 MG/DL 05/11/2018 4:44 AM CDT [facility] Comment:200-499 HIGH HDL 27(L) >49 MG/DL 05/11/2018 4:44 AM CDT [facility] LDL (CALCULATED) 114 MG/DL 05/11/20 18 4:44 AM CDT [facility] Comment:100-129 NEAR OR ABOV E OPTIMAL VLDL CALCULATION 45 MG/DL 05/11/20 18 4:44 AM CDT [facility] Comment:REFERENCE RANGE NOT ESTABLISHED CHOL/HDL RATIO 6.9 05/11/2018 4:44 AM CDT [facility] Comment:REFERENCE RANGE NOT ESTABLISHED LDL/HDL 4.2 05/11/2018 4:44 AM CDT [facility] Comment:REFERENCE RANGE NOT ESTABLISHED NON HDL CHOLESTEROL 159 MG/DL 05/11/2018 4:44 AM CDT [facility] Comment:REFERENCE RANGE NOT ESTABLISHED 05/11/2018 4:05 AM CDT Isaiah Charles MD LABORATORY Sonia l Result [facility] [address] [place] [address], [id number] from Last 3 Months or Most Recently Relevant to Health Maintenance Insurance MEDICAID MEDICARE [facility] MEDICARE Advance Directives * Full Code (Latest Code Status on File) Date Activated Date Inactivated Comments 05/10/2018 11:55 PM 05/12/2018 1:25 PM * Full Code Date Activated Date Inactivated Comments 05/10/2018 11:22 PM 05/10/2018 11:54 PM * Full Code Date Activated Date Inactivated Comments 05/10/2018 11:22 PM 05/10/2018 11:22 PM Care Teams Construction Recruiter Relationship Specialty Start Date End Date Chayito Hernadez MD [address] [place] [phone] PCP - General FAMILY PRACTICE 11/21/24 Brisa Maldonado MD [address] [place] [address] Consulting Physician CARDIOVASCULAR DISEASE 11/21/24
--- OUTSIDE RECORDS SUMMARY | 2025-05-06 16:13 | XMS_ITS | Clinical Summary ---
Author Organization [facility] Address [address] [place] [address] Care Team Providers Care Substation Maintenance Technician Name Role Phone Chayito Echavarria MD Primary [...] CDT - 03/08/2025 1:05 AM CDT Emergency [facility] Emergency Department [address] [place] [id number] Danis Christensen MD [place], MD Maribell Boone [...] Tobacco: Never Tobacco Cessation:Counseling Given: Not Answered [facility] Utilities Answer Date Recorded In the past [...] often do you attend chur ch or yazidism services? 1 to 4 times per year 10/29/2024 Do you belong to any clubs o r organizations such as amish groups, unions, fraternal or athletic groups, or [...] any time in the past 12 m [facility], were you homeless or living in a long term (including now)? No 10/29/2024 Personal Safety Answer Date Recorded Have you ever been in or are you currently in a harmful physical or emotional relationship or is someone making you feel afraid or unsafe? Denies 03/07/2025 Comments No Sex and Gender Information Value Date Recorded Sex Assigned at Not on file Legal Sex Female 3:51 AM KEEPER HEAD Gender Identity Not on file Sexual Orientation [...] (2 of 2 - PCV) 06/14/2022 06/14/2021 Breast Cancer Screening-Mammogram 08/16/2024 08/16/2023, 08/16/2023, 09/15/2022, Additional history exists Cervical Cancer Screening 10/17/2024 10/18/2023 Covid-19 Vaccine (2024-2 6 season) 2025 07/01/2023, 07/06/2022, 12/17/2021, Additional history exists Influenza Vaccine (#1) 2025 , 06/27/2023, 05/20/2022, [...] Read Routine (OP Routine) 09/15/2022 4:21 PM KEEPER HEAD Encounter for screening mammogram for malignant neoplasm [...] Final Result Performing Organization Address [facility] Co de Phone Number [facility] ([place]) [address] [facility] [place] [address] * BRENT ab ql w/rflx to BRENT [...] last revised on 2020. Testing performed by: [facility], [address] [facility] [place] [address] Blood 03/07/2025 7:17 PM CDT 03/08/2025 2:44 PM CDT Brian Herrera MD LAB BLOOD ORDERABLES Final Result Performing Organization Address [facility] Co de Phone Number [facility] ([place]) 1 [facility] [place] [address] * CTA Head Neck W WO Contrast [...] CT 03/07/2025 and 10/28/2024 FINDINGS: INTRACRANIAL VESSELS [place]: The anterior, middle, posterior cerebral [...] Bayron Crowley M.D. AT: AT Report ID: [id number] Reading Location: [id number] Procedure Note Bayron Crowley MD - 03/07/2025 EXAM DESCRIPTION: CTA HEAD NECK W WO CONTRAST REASON FOR STUDY: Ophthalmoplegia, Transient ischemic attack (TIA) Pt states she wasn't feeling well while [facility] Pt states she has been feeling [...] CT 03/07/2025 and 10/28/2024 FINDINGS: INTRACRANIAL VESSELS [place]: The anterior, middle, posterior cerebral [...] Bayron Crowley M.D. AT: AT Report ID: [id number] Reading Location: [id number] us Brian Herrera MD IMG CT PROCEDURES Final Res ult * Troponin T high-sensitivity 4-hour (03/07/2025 5:35 PM CDT) Trop T hs <6 <=14 ng/L [facility] ([facility]) Comment: Interpretive Data For further hscTnT resources including the diagnostic algorithm and an aid in interpretation, copy and paste this link: https://c-LEctal.iHigh.org/show/hsTrop Current Interpretive Data last revised 2020. Trop T hs delta 0 ng/L [facility] ([place]) Trop T hs interp Insignificant [facility] ([place]) Blood 03/07/2025 5:35 PM CDT 03/07/2025 5:38 PM CDT us Danis Christensen MD LAB BLOOD ORDERABLE S Final Result [facility] ([place]) 1 [facility] [place] [address] * Troponin T high-sensitivity 2-hour (03/07/2025 3:07 PM CDT) Trop T hs <6 <=14 ng/L [facility] ([place]) Comment: Interpretive Data For further hscTnT resources including the diagnostic algorithm and an aid in interpretation, copy and paste this link: https://nrl.iHigh.org/show/hsTrop Current Interpretive Data last revised 2020. Trop T hs delta 0 ng/L [facility] ([place]) Trop T hs interp Insignificant [facility] ([place]) Blood 03/07/2025 3:07 PM CDT 03/07/2025 3:09 PM CDT us Danis Christensen MD LAB BLOOD ORDERABLE S Final Result [facility] ([place]) 1 [facility] [place] [address] * CT Head WO Contrast (03/07/2025 2:30 [...] Johnny Wakefield M.D. AM: AM Report ID: [id number] Reading Location: [id number] Procedure Note Johnny Wakefield MD - 03/07/2025 [...] Johnny Wakefield M.D. AM: AM Report ID: [id number] Reading Location: [id number] Danis Christensen MD IMG CT PROCEDURES F [...] for uric acid stone formation. Source: Haney Scrip-t Current Interpretive Data was last revised on [...] esterase, ur 1+(A) Negative [facility] ([place]IR) UA reflex comment Reflex to microscopic UA will be performed. [facility] ([place]) Urine 03/07/2025 1:29 PM CDT 03/07/2025 1:32 PM CDT Danis Christensen MD LAB MICROBIOLOGY - GENERAL ORDERABLES Final Result Performing Organization Address City/[facility] Co de Phone Number [facility] ([place]) 1 [facility] [place] [address] * (ABNORMAL) Urinalysis, microscopic only (03/07/2025 1:29 PM CDT) WBC, ur 6-10(A) 0 - 5 /HPF RBC, ur 0-2 0 - 2 /HPF [facility] ([place]) Epithelial cells, squamous, ur 1-5 0 - 5 /HPF [facility] ([place]) Bacteria, ur Trace(A) [facility] ([place]) Mucous, ur Present(A) [facility] ([place]) Culture Reflex Comment Reflex conditions for urine culture (WBC >10) not met. [facility] ([place]) Urine 03/07/2025 1:29 PM CDT 03/07/2025 1:32 PM CDT Danis Christensen MD LAB URINE ORDERABLE S Final Result Performing Organization Address City/[facility] Co de Phone Number [facility] ([place]) 1 [facility] [place] [address] * Troponin T high-sensitivity series (baseline, 2hr, [...] BLOOD ORDERABLE S Final Result [facility] ([place]) 1 [facility] [place] [address] * eGFR (03/07/2025 1:02 PM CDT) eGFR [...] BLOOD ORDERABLE S Final Result [facility] ([place]) 1 [facility] [place] [address] * Differential, auto (03/07/2025 1:02 PM CDT) [...] S Final Result [facility] ([place]) 1 [facility] [place] [address] * CBC with auto differential (03/07/2025 1:02 [...] S Final Result [facility] ([place]) 1 [facility] [place] [address] * Erythrocyte sedimentation rate (03/07/2025 1:02 PM CDT) Erythrocyte sedimentation rate 15 1 - 30 mm/hr Blood 03/07/2025 1:02 PM CDT 03/07/2025 6:12 PM CDT us Brian Herrera MD LAB BLOOD ORDERABLES Final Result [facility] ([place]) 1 [facility] [place] [address] * Magnesium (03/07/2025 1:02 PM CDT) Magnesium 1.4 1.4 - 2.5 mg/dL [facility] ([place]) Blood 03/07/2025 1:02 PM CDT 03/07/2025 1:07 PM CDT us Danis Christensen MD LAB BLOOD ORDERABLE S Final Result Performing Organization Address City/[facility]/ZIP Co de Phone Number [facility] ([place]) 1 [facility] [place] [address] * (ABNORMAL) Comprehensive metabolic panel (03/07/2025 1:02 PM CDT) Sodium 142 135 - 145 mmol/L [facility] ([facility] Potassium, pl 3.8 3.3 - 4.9 mmol/L [facility] ([place]) Chloride 106 97 - 110 mmol/L [facility] ([place]) CO2 22 22 - 32 mmol/L [facility] ([place]) Anion gap 14 2 - 15 mmol/L [facility] ([facility]) BUN 12 6 - 25 mg/dL [facility] ([facility]) Creatinine 0.68 0.60 - 1.10 [...] Final Result Performing Organization Address [facility]/ZIP Co de Phone Number [facility] ([place]) 1 [facility] [place] [address] * ECG 12 lead (03/07/2025 12:53 PM CDT) 03/07/2025 12:5 3 PM CDT Narrative [facility] - 03/07/2025 3:33 PM CDT Vent Rate: 75 bpm RR Interval: 792 msec [place] Interval: 179 msec QRS Duration: 85 msec QT Interval: 387 msec QTC Interval: 416 msec P-R-T [place]: 54 - 17 - 49 degrees IMPRESSION: SINUS RHYTHM LOW QRS VOLTAGE IN PRECORDIAL LEADS [QRS DEFLECTION < 1.0 mV IN CHEST LEADS] ANTEROSEPTAL MYOCARDIAL INFARCTION [40+ ms Q WAVE IN V1-V4], OF INDETERMINATE AGE ABNORMAL ECG NO CHANGE FROM PREVIOUS TRACING NOTED Electronically Signed By: Delfino Wynn MD us Danis Christensen MD ECG ORDERABLES Fin al Result Performing Organization Address [facility]/ZIP Co de Phone Number [facility] [employer] [facility] * Screening Mammogram Bilateral W Bharath (09/15/2022 4:21 PM KEEPER HEAD) Anatomical Region Laterality Modality Breast Bilateral Mammography 09/15/2022 4:40 PM KEEPER HEAD Impressions 09/15/2022 4:40 PM KEEPER HEAD There is no mammographic evidence of malignancy. A 1 year screening mammogram is recommended. BI-RADS: 1 - Negative. The patient has been or will be contacted. The patient will be entered into a reminder system with a target due date of 1 year for her next mammogram. Electronically signed by: Hernando Alba M.D. Narrative 09/15/2022 4:40 PM KEEPER HEAD EXAMINATION: SCREENING MAMMOGRAM BILATERAL W BHARATH ORDERING HEALTHCARE PROVIDER: RAEANN DUVLA HISTORY: Routine screening mammography. COMPARISON: 07/30/2021, 01/23/2019, [...] no suspicious interval change. us Raeann Duval ADMINISTRATIVE OFFICE ASSISTANT IMG MAMMO PROCEDURES Final R esult from Last 3 Months or Most Recently Relevant to Health Maintenance Insurance [facility] MEDICARE ADVANTAGE Advance Directives For more information, please contact: [phone] * Full Code (Latest Code Status on File) Date Activated Date Inactivated Comments 10/28/2024 6:38 PM 10/29/2024 10:00 PM * Full Code Date Activated Date Inactivated Comments 10/28/2024 6:37 PM 10/28/2024 6:38 PM Care Teams Substation Maintenance Technician Relationship Specialty Start Date End Date Chayito Echavarria MD [address] [place] [address] PCP - General Family Medicine 09/25/24
--- OUTSIDE RECORDS SUMMARY | 2025-05-06 16:13 | XMS_ITS | Clinical Summary ---
Author Organization [facility] Address [address] [place] [address] Phone Care Team Providers Care Shingle Weaver Name Role Phone Lon Raeann Vidal APRN, EXPERIENCE PLANNING STRATEGIST Primary Care Provider Allergies Active Allergy Reactions [...] (90 Base) MCG/ACT Aerosol SolutionIndicat ions:Other emphysema take 2 Puffs by inhalation every 4 hours as needed for Cough. 18 g 5 2 Active azelastine (ASTELIN) 0.1 % SolutionIndicat ions:PND (post-nasal drip) 2 Sprays by Nasal route 2 times daily. Use in each nostril as directed 30 mL 3 4 Active Fluticasone-Ume clidin-Vilant (Trelegy Ellipta) 100-62.5-25 MCG/ACT AEROSOL POWDER, BREATH ACTIVATEDIndica tions:Centrilob ular emphysema take 1 Puff by inhalation daily. 14 [...] Group - Pulmonology & Sleep Medicine - [place] [address] [place] [address] Mirella Cotter APRN, EXPERIENCE PLANNING STRATEGIST [address] [address] Health Maintenance Due Date Last Done Comments Hepatitis C Virus (HCV) Screening 1965 Hepatitis B Immunization (1 of 3 - 19+ 3-dose series) 1984 HPV/Cotest 1995 Cologuard 2010 Colonoscopy 2010 Colorectal Cancer Screening 2010 Immunochemical Fecal Occult Blood 2010 Zoster Immunization (1 of 2) 2015 Medicare Initial AWV [id number] 04/07/2023 Mammogram 08/16/2024 08/16/2023, 08/07, 09/15/2022, Additional history [...] to complete this topic Insurance [place] [address] MEDICARE Care Teams Shingle Weaver Relationship Specialty Start Date End Date Raeann Forrest APRN, EXPERIENCE PLANNING STRATEGIST [address] [place] [address] PCP - General Advanced Practice Nurse 07/28/21
--- OUTSIDE RECORDS SUMMARY | 2025-05-06 16:13 | XMS_ITS | Clinical Summary ---
Author Organization [facility] [employer] Address [address] [place] [address] Care Team Providers Care Department Operations Manager Name Role Phone Andres Palumbo MD Primary Care Provider [phone] Source Comments [facility] [employer],non-owned Affiliates and Associated Physician Practices is amultiple site organization consisting of ambulatory clinics and hospital sitesin [place], [place], [place] and [place]. This disclosure is being madepursuant to the Care Everywhere program and may not contain all information available regarding this patient. Last updated 18.[facility] [employer] Social History Tobacco Use Types Packs/Day Years Used Date Smoking Tobacco: Never Assessed Comments Unknown Sex and Gender Information Value Date Recorded Sex Assigned at Not on file Legal Sex Female 6:22 AM PRINCIPAL ARCHITECT Gender Identity Not on file Sexual [...] age to complete this topic Care Teams Department Operations Manager Relationship Specialty Start Date End Date Andres Palumbo MD [address] [place] [phone] PCP - General 04/02/18
--- OUTSIDE RECORDS SUMMARY | 2025-05-06 16:13 | XMS_ITS | Encounter Summary ---
Author Organization [facility] Address [address] [place] [address] Phone Care Team Providers Care Coat Operator Name Role Phone Raeann Forrest APRN, CNP Primary Care Provider Mirella Cotter APRN, CNP Unavailable Reason for Visit * Reason Comments Medication Refill Encounter Details Date Type Department Care Team (Late st Contact Info) Description 10/07/2022 Refill [facility] - Pulmonology & Sleep Medicine [facility] [address] [place] [address] Mirella Cotter APRN, CNP [address] [address] Medication Refill Social History Tobacco Use Types [...] Kemi Felix RN - 10/10/2022 8:39 AM DISPATCH SPECIALIST Medication failed the protocol, provider to review [...] Cotter APRN, CNP [facility] Showing recent visits within past 182 days and meeting all other requirements Future Appointments No visits were found meeting these conditions. Showing future appointments within next 90 days and meeting all other requirements ATCH SPECIALIST documented in this encounter Plan of Treatment Upcoming Encounters Date Type Department Care Team ([facility] st Contact Info) Description 05/30/2025 10:00 AM CDT Office Visit [facility] - Pulmonology & Sleep Medicine [facility] [address] [place] [address] Mirella Cotter APRN, MELVA [address] [address] documented as of this encounter Visit Diagnoses Diagnosis Personal history of tobacco use Personal history of tobacco use, presenting hazards to health documented in this encounter Care Teams Coat Operator Relationship Specialty Start Date End Date Raeann Forrest APRN, CNP [address] [place] [address] PCP - General Advanced Practice Nurse 07/28/21 Mirella Cotter APRN, CNP #[address] [address] Nurse Practitioner Advanced Practice Nurse 10/28/2112/08/24 documented as of this encounter
--- OUTSIDE RECORDS SUMMARY | 2025-05-06 16:13 | XMS_ITS | Encounter Summary ---
Author Organization [facility] Address [address] [place] [address] Phone Care Team Providers Care Rate Quoting Operator Name Role Phone Raeann Forrest APRN, CNP Primary Care Provider Mirella Cotter APRN, CNP Unavailable Reason for Visit * Reason Comments Medication Refill Encounter Details Date Type Department Care Team (Late st Contact Info) Description 12/08/2022 Refill [facility] - Pulmonology & Sleep Medicine [facility] [address] [place] [address] Mirella Cotter APRN, CNP [address] [address] Medication Refill Social History Tobacco Use Types [...] Description 05/30/2025 10:00 AM CDT Office Visit [facility] - Pulmonology & Sleep Medicine - [place] [address] [place] [address] Mirella Cotter APRN, CNP [address] [address] documented as of this encounter Visit Diagnoses Diagnosis Personal history of tobacco use Personal history of tobacco use, presenting hazards to health documented in this encounter Care Teams Rate Quoting Operator Relationship Specialty Start Date End Date Raeann Forrest APRN, CNP [address] [place] [address] PCP - General Advanced Practice Nurse 07/28/21 Mirella Cotter APRN, CNP #[address] [address] Nurse Practitioner Advanced Practice Nurse 10/28/2112/08/24 documented as of this encounter
--- OUTSIDE RECORDS SUMMARY | 2025-05-06 16:13 | XMS_ITS | Encounter Summary ---
Author Organization [facility] Address [address] [place] [address] Phone Care Team Providers Care Services Tech Name Role Phone Raeann Forrest APRN, CNP Primary Care Provider Mirella Cotter APRN, CNP Unavailable Reason for Visit * Reason Comments Medication Refill Encounter Details Date Type Department Care Team (Late st Contact Info) Description 11/08/2022 Refill [facility] - Pulmonology & Sleep Medicine [facility] [address] [place] [address] Mirella Cotter APRN, CNP [address] [address] Medication Refill Social History Tobacco Use Types [...] 05/30/2025 10:00 AM CDT Office Visit [facility] - Pulmonology & Sleep Medicine - [place] [address] [place] [address] Mirella Cotter APRN, CNP [address] [address] documented as of this encounter Visit Diagnoses Diagnosis Personal history of tobacco use Personal history of tobacco use, presenting hazards to health documented in this encounter Care Teams Services Tech Relationship Specialty Start Date End Date Raeann Forrest APRN, CNP [address] [place] [address] PCP - General Advanced Practice Nurse 07/28/21 Mirella Cotter APRN, CNP [address] [address] Nurse Practitioner Advanced Practice Nurse 10/28/2112/08/24 documented as of this encounter
--- OUTSIDE RECORDS SUMMARY | 2025-05-06 16:13 | XMS_ITS | Encounter Summary ---
Author Organization [facility] Address [facility] [place] [address] Care Team Providers Care Service Technician Copier Name Role Phone Andres Palumbo MD Primary Care Provider [phone] Raeann Forrest NP Primary Care Provider [phone] Brisa Maldonado MD Unavailable Prince Michel MD Unavailable [phone] Chayito Echavarria MD Primary Care Provider [phone] Encounter Details Date Type Department Care Team (Late st Contact Info) Description 01/12/2019 Abstract [facility] CONVERSION [address] [place] [address] , Generic Conversion, Social History [...] st Contact Info) Description 08/14/2025 2:45 PM DISTRIBUTION CENTER ADMINISTRATOR [facility] [address] [place] [id number] Brisa Maldonado MD [address] [place] [address] documented as of this encounter Visit Diagnoses Not on filedocumented in this encounter Care Teams Service Technician Copier Relationship Specialty Start Date End Date Andres Palumbo MD [address] [place] [address] PCP - General FAMILY PRACTICE 05/10/18 11/29/22 Raeann Forrest NP [address] [place] [address] PCP - General NURSE PRACTITIONER 11/30/22 11/20/24 Chayito Echavarria MD [address] [place] [address] PCP - General FAMILY PRACTICE 11/21/24 Brisa Maldonado MD [address] [place] [address] Consulting Physician CARDIOVASCULAR DISEASE 11/21/24 [place] [address] [address] FAMILY PRACTICE 11/21/24 11/21/24 documented as of this encounter
== END 2025-05-06 16:09 | disposition home or self-care (01) ==
LOC: CHSIMG 16:11
PROVIDERS: PCP Family Medicine; Visit Provider Family Medicine
DX: M25.561 Pain in right knee (principal)
CPT/HCPCS: 73562

== ENCOUNTER 2025-05-17 10:31 | Outpatient (CLI) | payer MEDICARE, MEDICAID, SELFPAY ==
--- NOTE | ~2025-05-17 | MR_ITS ---
EXAMINATION: MR abdomen wo con DATE: 05/17/2025 12:00 INDICATION: Adrenal nodule. TECHNIQUE: Magnetic resonance imaging (MRI) of the abdomen was performed without intravenous contrast. COMPARISON: Chest CT 03/27/2025 FINDINGS: The liver, gallbladder, spleen, pancreas, and right adrenal gland are normal. There is a 2.6 cm mass in left adrenal gland containing microscopic fat, consistent with an adenoma. The kidneys are normal. There are no dilated loops of bowel. There are no pathologically enlarged lymph nodes. There is no free intraperitoneal fluid. IMPRESSION: 1. 2.6 cm left adrenal adenoma. Reviewed, dictated and finalized at location E.
== END 2025-05-17 10:32 | disposition home or self-care (01) ==
LOC: CHSIMG 10:33
PROVIDERS: PCP Family Medicine; Visit Provider Family Medicine
DX: D35.02 Benign neoplasm of left adrenal gland (principal)
CPT/HCPCS: 74181